=== PATIENT | male | born 1975 | race Hispanic/Latino ===

== ENCOUNTER 2019-08-23 11:50 | Inpatient (IN) | payer BC ==
[~2019-08-23] VITALS: Ht 175.3 cm; Wt 78.6 kg
[2019-08-23] MEDS ORDERED: SODIUM CHLORIDE 0.9% 1000ML 1,000 ML IV STA ×2 (11:54→15:38)
[2019-08-23] MEDS ORDERED: DIATRIZOATE MEGL/DIATRIZOA SOD 30 ML BTL PO ONE (12:16)
[2019-08-23] MEDS ORDERED: KETOROLAC TROMETHAMINE 30 MG/ML VIAL IV ONE (12:30)
[2019-08-23] MEDS ORDERED: ONDANSETRON HCL INJ 2MG/ML 2ML 2 MG/ML VIAL IV ONE (13:00)
[2019-08-23 13:01] LABS: BASOPHILS # (AUTO) 0.1 (0.0-0.1); BASOPHILS % 0.2 % (0.0-1.0); HEMATOCRIT 42.8 % (38.2-49.6); HEMOGLOBIN 14.9 g/dL (14.0-18.0); LYMPHOCYTES # (AUTO) 1.5 (1.0-3.2); LYMPHOCYTES % 5.6 % (18.0-39.1); MEAN CORPUSCULAR HEMOGLOBIN 30.7 pg (28-32); MEAN CORPUSCULAR HGB CONC 34.8 g/dL (31-35); MEAN CORPUSCULAR VOLUME 88.2 fL (81-99); MONOCYTES # (AUTO) 1.6 (0.2-0.8); MONOCYTES % 5.9 % (4.4-11.3); NEUTROPHILS % 87.4 % (38.7-80.0); PLATELET COUNT 294 x10e3/uL (140-360); RED BLOOD COUNT 4.85 x10e6/uL (4.3-5.7); RED CELL DISTRIBUTION WIDTH 12.6 % (11.7-14.4)
--- NOTE | 2019-08-23 13:06 | NUR ---
REC'D PT IN RM 3 WITH C/O ABD PAIN/FEVER. PLACED ON THE MONITOR AND HAS CT CONTRAST; WHICH HE IS TOLERATING WELL.
[2019-08-23] MEDS ORDERED: PIPER-TAZ 3.375 GM 50 ML IV ONE (14:00)
--- NOTE | 2019-08-23 14:43 | NUR ---
temp. 99.2-abx hung and pt is tolerating well.
[2019-08-23 14:46] LABS: BLOOD UREA NITROGEN 10 mg/dL (7-26); BUN/CREATININE RATIO 10 (6-25); EST GLOMERULAR FILTRATION RATE > 60 ML/MIN (60-)
[2019-08-23 14:47] LABS: ALANINE AMINOTRANSFERASE 118 IU/L (0-55); ALBUMIN 3.6 g/dL (3.5-5.0); ALBUMIN/GLOBULIN RATIO 0.7 (0.8-2.0); ALKALINE PHOSPHATASE 211 IU/L (40-150); ANION GAP 15.6 mmol/L (8-16); CALCIUM 10.6 mg/dL (8.4-10.2); CARBON DIOXIDE 24 mmol/L (22-29); CHLORIDE 98 mmol/L (98-107); GLUCOSE 128 mg/dL (74-118); POTASSIUM 3.6 mmol/L (3.5-5.1); SODIUM 134 mmol/L (136-145)
[2019-08-23 15:02] LABS: CLARITY,URINE CLOUDY (CLEAR); COLOR,URINE ORANGE (YELLOW); LEUKOCYTE ESTERASE ,URINE NEGATIVE (NEGATIVE); NITRITE,URINE NEGATIVE (NEGATIVE)
[2019-08-23 15:03] LABS: BILIRUBIN,URINE MODERATE (NEGATIVE); KETONES,URINE 1+ (NEGATIVE); PROTEIN,URINE DIPSTICK 1+ (NEGATIVE); URINE UROBILINOGEN 8 mg/dL (0.2 - 1)
[2019-08-23 15:16] LABS: BACTERIA,URINE MODERATE /HPF; EPITHELIAL CELLS,URINE FEW /LPF; RBC,URINE 0-5 /HPF (0-5)
[2019-08-23 15:17] LABS: MUCUS,URINE RARE (RARE)
--- NOTE | 2019-08-23 15:28 | Diagnostic Imaging Report ---
EXAM: CT Abdomen and Pelvis WITH intravenous contrast INDICATION: Abdominal pain COMPARISON: None. TECHNIQUE: Abdomen and pelvis were scanned utilizing a multidetector helical scanner from the lung base to the pubic symphysis after administration of IV contrast. Coronal and sagittal reformations were obtained. Routine protocol was performed. Scan was performed during portal venous phase. IV CONTRAST: 100mL of Isovue 370 ORAL CONTRAST: Gastrografin RADIATION DOSE: Total DLP: 419.97 mGy*cm Dose modulation, iterative reconstruction, and/or weight based adjustment of the mA/kV was utilized to reduce the radiation dose to as low as reasonably achievable. FINDINGS: LOWER THORAX: Normal. HEPATOBILIARY: Diffuse hepatic steatosis. No focal liver lesion. No biliary ductal dilation. Unremarkable gallbladder. SPLEEN: No splenomegaly. PANCREAS: No focal masses or ductal dilatation. ADRENALS: No adrenal nodules. KIDNEYS/URETERS: No hydronephrosis, stones, or solid mass lesions. PELVIC ORGANS/BLADDER: Unremarkable. PERITONEUM / RETROPERITONEUM: No free air or fluid. LYMPH NODES: No lymphadenopathy. VESSELS: Unremarkable. GI TRACT: Sigmoid diverticulosis with a 7 cm segment of severely thickened sigmoid colon with pericolonic fat stranding and extensive extraluminal air. No focal drainable fluid collection. BONES AND SOFT TISSUES: Unremarkable. IMPRESSION: Acute perforated sigmoid diverticulitis with extensive pericolonic fat stranding and extraluminal air. No focal drainable diverticular abscess. Diffuse hepatic steatosis. Signed by: Sari Ribeiro MD on 08/23/2019 3:25 PM
[2019-08-23] MEDS ORDERED: SODIUM CHLORIDE 0.9% 1000ML 1,000 ML IV SCH (15:45)
[2019-08-23] MEDS: METRONIDAZOLE 500MG/NS 100ML 100 ML IV SCH ×2 (16:00→21:44)
[2019-08-23] MEDS ORDERED: MORPHINE SULFATE 2 MG/ML SYR 1ML IV PRN (16:00)
--- OUTSIDE RECORDS SUMMARY | 2019-08-23 16:17 | XMS REPORT ---
Author Author [facility] Address Unknown Phone Unavailable Care Team Providers Care Repair Mechanic Name Role Phone Elif STEVENSON Unavailable Unavailable Problems This patient has no known problems. Allergies, Adverse Reactions, Alerts This patient has no known allergies or adverse reactions. Medications This patient has no known medications. Results Test Description Test Time Test Comments Text Results Atomic Results Result Comments CT ABDOMEN/PELVIS W 2019-08-23 15:21:00 [place] [address] Patient Name: MEENAKSHI FIERRO MR #: [id number] : 1975 Age/Sex: 44/M Req #: [id number] Adm Physician: Ordered by: HARI TEJEDA [employer] Report #: [id number] Location: ER Room/Bed: Procedure: [id number] CT/CT ABDOMEN/PELVIS W Exam Date: Exam Time: REPORT STATUS: Signed EXAM: CT Abdomen and Pelvis WITH intravenous contrast INDICATIO N: Abdominal pain COMPARISON: None. TECHNIQUE: Abdomen and pelvis were scanned utilizing a multidetector helical scanner from the lung base to the pubic symphysis after administration of IV contrast. Coronal and sagittal reformations were obtained. Routine protocol was performed. Scan was performed during portal venous phase. IV CONTRAST: 100mL of Isovue 370 ORAL CONTRAST: Gastrografin RADIATION DOSE: Total DLP: 419.97 mGy*cm Dose modulation, iterative reconstruction, and/or weight based adjustment of the mA/kV was utilized to reduce the radiation dose to as low as reasonably achievable. FINDINGS: LOWER THORAX: Normal. HEPATOBILIARY: Diffuse hepatic steatosis. No focal liver lesion. No biliary ductal dilation. Unremarkable gallbladder. SPLEEN: No splenomegaly. PANCREAS: No focal masses or ductal dilatation. ADRENALS: No adrenal nodules. KIDNEYS/URETERS: No hydronephrosis, stones, or solid mass lesions. PELVIC ORGANS/BLADDER: Unremarkable. PERITONEUM / RETROPERITONEUM: No free air or fluid. LYMPH NODES: No lymphadenopathy. VESSELS: Unremarkable. GI TRACT: Sigmoid diverticulosis with a 7 cm segment of severely thickened sigmoid colon with pericolonic fat stranding and extensive extraluminal air. No focal drainable fluid collection. BONES AND SOFT TISSUES: Unremarkable. IMPRESSION: Acute perforated sigmoid diverticulitis with extensive pericolonic fat stranding and extraluminal air. No focal drainable diverticular abscess. Diffuse hepatic steatosis. Signed by: Vandana Ramirez MD on 08/23/2019 3:25 PM Dictated By: VANDANA RAMIREZ MD 1525 Transcribed By: TORO on 08/23/19 1525 COPY TO: HARI TEJEDA NP TONSILS 2018-05-08 14:26:00 RUN DATE: 05/08/18 [place] [facility] PAGE 1 RUN TIME: 1426 Specimen Inquiry RUN USER: INTERFACE PATIENT: MEENAKSHI FIERRO LOC: [facility] U #: [id number] AGE/SX: 43/M ROOM: RE05/05/18REG DR: Avi Johnston MD : 75 BED: DIS: STATUS: [facility] TLOC: SPEC #: [id number] RECD: 05/05/18 STATUS: [facility] #: [id number] EDUARDO: 05/05/18- SUBM DR: Avi Johnston MD ENTERED: 05/05/18 SP TYPE: TONSILS OTHR DR: ORDERED: GROSS PROCEDURES: GROSS (05/08/18) TISSUES: 1. TONSIL, NOS - LEFT 2. TONSIL, NOS - RIGHT CLINICAL HISTORY COLLECTION DATE: 05/05/2018 FINAL DIAGNOSIS Left tonsil, excision: TONSIL WITH REACTIVE FOLLICULAR HYPERPLASIA AND AREA OF MILD CENTRAL CYSTIC DILATATION NEGATIVE FOR MALIGNANCY Right tonsil, excision: TONSIL WITH REACTIVE FOLLICULAR HYPERPLASIA NEGATIVE FOR MALIGNANCY RRB/adryan D [phone] MACROSCOPIC The first specimen is received in formalin, labeled with the patient's name, and identified as "left tonsil",. It consists of a tonsil measuring 2.8 X 1.7 X 1.7 cm. Green ink is placed on the base. Multiple transverse sections demonstrate what appears to be a cyst within the tonsil. The cyst measures 1.5 cm in diameter. No other lesions are seen. Samples of the tonsil including the cystic area are submitted for microscopic evaluation in cassette (1). The second specimen is received in formalin, labeled with the patient's name, and identified as "right tonsil". It consists of a tonsil which measures 2.6 X 2.0 X 1.4 cm. The base is inked in blue. The specimen is multiply transected. No focal lesions are seen. Samples of the specimen are submitted for microscopic evaluation in cassette (2). CONTINUED ON NEXT PAGE RUN DATE: 05/08/18 [facility] PAGE 2 RUN TIME: 6 Specimen Inquiry RUN USER: INTERFACE SPEC #: [id number] PATIENT: MEENAKSHI FIERRO #[id number] (Continued) MACROSCOPIC (Continued) GROSS PERFORMED AT [facility] [address] [place] [address] (p)[phone] MICROSCOPIC MICROSCOPIC PERFORMED AT [facility] All of the stains, including any controls performed, stain appropriately. [facility] [address] [place] [address], [place] [address] (p)[phone] PERFORMING SITE Diagnosis performed at: [facility], SARAH BETH [address] [place] [address] Signed SIGNATURE ON FILE Kenneth Brito 05/08/18 1426 END OF REPORT
--- NOTE | 2019-08-23 16:28 | NUR ---
PT UPDATED RE POC/ORDRS/ADMIT VIA LANGUAGE LINE
--- NOTE | 2019-08-23 16:39 | NUR ---
DR. CAMACHO SAW THE PT.
--- NOTE | 2019-08-23 16:50 | NUR ---
2ND LACTIC DRAWN AND SENT OFF.
[2019-08-23] MEDS ORDERED: PIPER-TAZ 3.375 GM 50 ML IV SCH (18:00)
[2019-08-23] MEDS: SODIUM CHLORIDE 0.9% 1000ML 1,000 ML IV SCH (18:06)
[2019-08-23] MEDS ORDERED: IOPAMIDOL 370 MG/ML 200 ML INFUS..BTL INJ ONE (18:24)
[2019-08-23] MEDS ORDERED: SODIUM CHLORIDE 0.9% 50ML 50 ML ONE (18:24)
--- NOTE | 2019-08-23 19:00 | NUR ---
Received patient from day nurse, patient is alert and oriented x4. patient is on 4l nc. safety and fall precautions mantained as per hospital protocol: bed in lowest postion and locked, needed items beside bed and call duncan placed close to patient, patient instructed to use it to call nurses for any assistance needed patient verbalized understanding.
[2019-08-23 20:00] VITALS: BP_SYST 125; BP_SYST 126; BP_DIAS 76; BP_DIAS 78
[2019-08-23] MEDS ORDERED: SODIUM CHLORIDE 0.9% 250ML 250 ML ONE (20:00)
[2019-08-23 20:33] VITALS: BP 125/76
[2019-08-23] MEDS: ONDANSETRON HCL INJ 2MG/ML 2ML 2 MG/ML VIAL IV PRN (20:44)
[2019-08-23] MEDS: PIPER-TAZ 3.375 GM 50 ML IV SCH (20:44)
[2019-08-23] MEDS: MORPHINE SULFATE INJ 4 MG/ML INJ 1ML IV PRN (20:44)
--- NOTE | 2019-08-23 23:15 | Consultation ---
DATE OF CONSULTATION: 08/23/2019 HISTORY OF PRESENT ILLNESS: The patient is a 44-year-old male presents with complaints of lower abdominal pain, which he has had for two days. He had some associated diarrhea, some nausea, no vomiting. He said he had similar pain about a year ago at [facility]. He says he did not tell him what his condition was. He was evaluated CT scan of the abdomen and pelvis, which revealed sigmoid diverticulitis with contained perforation in the pericolonic area. There was no free fluid seen and the area was appeared to be mostly retroperitoneal. PAST MEDICAL HISTORY: Otherwise, unremarkable, was only previous surgery tonsillectomy. He has no chronic medical problems. MEDICATIONS: There were no current medications. ALLERGIES: NO KNOWN ALLERGIES. FAMILY HISTORY: Noncontributory. SOCIAL HISTORY: The patient does not smoke cigarettes or drink alcohol. He is . REVIEW OF SYSTEMS: As stated above. He had fever in the emergency room. Says his pain is somewhat less now. PHYSICAL EXAMINATION: GENERAL: The patient is awake and alert. VITAL SIGNS: At this time reveal heart rate around 100. He is afebrile. It was 101.7 on arrival. Blood pressure is normal. HEENT: Pupils equal, round, reactive to light. Sclerae not icteric. NECK: No masses. LUNGS: Equal breath sounds are clear bilaterally. CARDIAC: Regular rate and rhythm with no murmur. ABDOMEN: Tender in lower abdomen with questionable signs of peritonitis in the lower abdomen, otherwise is soft with no mass and no distention. EXTREMITIES: No edema. Pulses were palpable. NEUROLOGIC: Intact. LABORATORY DATA: White blood count was 27.5 on admission, hemoglobin and hematocrit are normal. There is a left shift differential. Chemistry revealed slightly elevated lactic acid level. BUN and creatinine were normal. Elevated liver function tests with elevated bilirubin, AST and ALT now and phosphatase. ASSESSMENT: A 44-year-old male with acute sigmoid diverticulitis with contained perforation. At this point, I recommend keeping the patient n.p.o. on IV fluids, IV antibiotics. This very likely resolve without requiring surgery, but if his symptoms do not improve or they worsen, then he would require surgery, which would be sigmoid colon resection, this was explained to the patient. Thank you for asking me to see Mr. Stevenson. Rafat W MD ELEAZAR White/ARIA /[id number]
[2019-08-24] VITALS (9 sets, daily range): BP systolic 105–126; BP diastolic 64–78
[2019-08-24] MEDS: SODIUM CHLORIDE 0.9% 1000ML 1,000 ML IV SCH ×3 (03:13→17:24)
[2019-08-24] MEDS: PIPER-TAZ 3.375 GM 50 ML IV SCH ×2 (03:43→09:16)
[2019-08-24] MEDS ORDERED: ACETAMINOPHEN 650 MG SUPP PR PRN (04:30)
[2019-08-24 05:20] LABS: BASOPHILS % 0.2 % (0.0-1.0); EOSINOPHILS % 0.1 % (0.0-6.0); HEMATOCRIT 35.5 % (38.2-49.6); HEMOGLOBIN 11.8 g/dL (14.0-18.0); LYMPHOCYTES # (AUTO) 1.7 (1.0-3.2); LYMPHOCYTES % 8.9 % (18.0-39.1); MEAN CORPUSCULAR HEMOGLOBIN 29.9 pg (28-32); MEAN CORPUSCULAR HGB CONC 33.2 g/dL (31-35); MEAN CORPUSCULAR VOLUME 90.1 fL (81-99); MONOCYTES # (AUTO) 1.6 (0.2-0.8); MONOCYTES % 8.5 % (4.4-11.3); NEUTROPHILS # (AUTO) 15.5 (2.1-6.9); NEUTROPHILS % 81.7 % (38.7-80.0); PLATELET COUNT 262 x10e3/uL (140-360); RED BLOOD COUNT 3.94 x10e6/uL (4.3-5.7); RED CELL DISTRIBUTION WIDTH 12.8 % (11.7-14.4)
[2019-08-24 05:50] LABS: ALANINE AMINOTRANSFERASE 76 IU/L (0-55); ALBUMIN 2.6 g/dL (3.5-5.0); ALBUMIN/GLOBULIN RATIO 0.6 (0.8-2.0); ALKALINE PHOSPHATASE 157 IU/L (40-150); ANION GAP 14.4 mmol/L (8-16); BLOOD UREA NITROGEN 11 mg/dL (7-26); BUN/CREATININE RATIO 13 (6-25); CARBON DIOXIDE 18 mmol/L (22-29); CHLORIDE 107 mmol/L (98-107); CREATININE, SERUM 0.83 mg/dL (0.72-1.25); EST GLOMERULAR FILTRATION RATE > 60 ML/MIN (60-); GLUCOSE 91 mg/dL (74-118); POTASSIUM 3.4 mmol/L (3.5-5.1); SODIUM 136 mmol/L (136-145)
[2019-08-24] MEDS: METRONIDAZOLE 500MG/NS 100ML 100 ML IV SCH ×4 (05:55→22:00)
--- NOTE | 2019-08-24 07:21 | NUR ---
patient endorsed to next shift for continuity of care.
[2019-08-24] MEDS ORDERED: POTASSIUM CHLORIDE 20MEQ/100ML 200 ML IV ONE (10:30)
[2019-08-24] MEDS: CEFEPIME 1GM/NS 0.9% 50 ML 50 ML IV SCH ×2 (14:00→22:56)
--- NOTE | 2019-08-24 17:26 | History and Physical ---
CHIEF COMPLAINT: Abdominal pain. HISTORY OF PRESENT ILLNESS: This is a 44-year-old male with no past medical history reports with acute onset of abdominal pain that began on Tuesday of this last week. The patient reports that he was at home, suddenly noticed acute abdominal pain in the periumbilical area that radiated to his left lower quadrant. He does not have a history of diverticulitis in the past. He does not follow up with the PCP very frequently. The patient came in to [facility] for further evaluation and management. Imaging study CT abdomen and pelvis showed evidence of a perforated sigmoid diverticulitis acutely. There was no evidence of any abscess seen. The patient denies any nausea or vomiting. Reports having abdominal pain. General Surgery was consulted. REVIEW OF SYSTEMS: Pertinent positives: Abdominal pain. Pertinent negatives: Denies any chest pain, palpitation, nausea, vomiting, diarrhea, dysuria, hematuria, frequency, urgency, lightheadedness, dizziness, cough, congestion, fever, or any other complaints. The rest of 14-point review of systems have been reviewed with the patient and are negative. ALLERGIES: NO KNOWN DRUG ALLERGIES. MEDICATIONS: None. PAST MEDICAL HISTORY: None. PAST SURGICAL HISTORY: None. FAMILY HISTORY: Hypertension and diabetes. SOCIAL HISTORY: No drugs, no alcohol, does not smoke. PHYSICAL EXAMINATION: VITAL SIGNS: Temperature is 98, pulse 90, respiratory 16, blood pressure 105/68, pulse ox 99% on room air. GENERAL: Not in acute distress. Alert and oriented x3. Cooperative on examination. HEENT: Head normocephalic, atraumatic. Eyes; pupils are equal, round, and reactive to light bilaterally. Extraocular muscles intact bilaterally. NECK: Supple. Good range of motion. THROAT: No evidence of erythema or exudates in the posterior pharynx. Has poor dentition. PULMONARY: Clear to auscultation bilaterally. No wheezing, rales, or rhonchi. No crackles appreciated. CARDIOVASCULAR: Positive S1, S2. No murmurs, rubs, or gallops. ABDOMEN: Soft, nondistended, nontender to palpation. Bowel sounds present. Tender to palpation in the left lower quadrant, very mild, but no rebound and no guarding appreciated. MUSCULOSKELETAL: Strength is 5/5 throughout. No evidence of any muscle deficits on examination. No weakness appreciated. NEUROLOGIC: Cranial nerves II through XII grossly intact. No evidence of any neurological deficits on exam. SKIN: Intact. Warm to touch. Good cap refill. PSYCHIATRIC: Normal affect and mood. EXTREMITIES: No edema. Good range of motion throughout. LABORATORY FINDINGS: White count on admission was 27, now 18.9, hemoglobin is 11.8, hematocrit 35, and platelets of 262. Chemistry; sodium 136, potassium 3.4, chloride 107, bicarb 18, anion gap of , BUN 11, creatinine 0.83, glucose 91, lactic acid on admission 2.2, 1.1, now 0.9, calcium is 9, total bilirubin was 1.9, AST is 30, ALT 76, alkaline phosphatase 157, total protein 6.7, albumin is 2.6. Urinalysis concerning for underlying UTI. MICROBIOLOGY: Urine cultures, no growth to date. Blood cultures are pending. IMAGING STUDIES: CT abdomen and pelvis shows acute perforated sigmoid diverticulitis with extensive pericolonic fat stranding and extraluminal air. No diverticular abscess. Diffuse hepatic steatosis. IMPRESSION: 1. Acute perforated sigmoid diverticulitis. 2. Abdominal pain with nausea. 3. Dehydration. 4. Probable urinary tract infection. 5. Elevated LFTs, improving. PLAN: At this time, General surgery consult recommends conservative treatment. He is on broad-spectrum IV antibiotic therapy. ID consulted. IV fluids, n.p.o., and pain control. Follow recommendations by General Surgery. He is currently now on a diet, which we will continue to follow and this will be determined based on General Surgery. At this time, he was very mildly tender on examination, but no rebound or guarding on exam. Follow ID and General Surgery recommendations. He will be on SCDs for DVT prophylaxis. Otherwise, we will monitor very closely and continue with same plan of care. MD ZACHARY Whitaker/ARIA /[id number]
--- NOTE | 2019-08-24 17:45 | Consultation ---
DATE OF CONSULTATION: REASON FOR CONSULTATION: Abdominal pain. HISTORY OF PRESENT ILLNESS: The patient, who is a very pleasant 44-year-old male denies any past medical history, comes in with 5 days history of left lower quadrant pain, was getting progressively worse, started 5 to 6 days ago. The next day, was getting progressively worse. There is some nausea. No vomiting. No fever. No chills. The patient went to an outside facility. He was given oral antibiotic, but he continued the next day not feeling better, so he was sent here. The patient is being admitted. A CAT scan was done. He has already been seen by Surgery. The patient apparently had diverticulitis with contained perforation in the pericolonic area. There was no flow to aspirate. The patient was admitted. I was asked to see him. LABORATORY DATA: His blood culture is still pending. His white count on admission was 27.4, came down to 18.9, hemoglobin 14, hematocrit 42 on admission. His sodium 134, potassium 3.6, creatinine 1.0 with a glucose of 128. Liver enzymes showed elevation of AST 37, ALT 118 with alkaline phosphatase 211. Lactic acid on admission was 2.2. MEDICATIONS: The patient is currently on metronidazole, Zosyn, and Zofran. PAST MEDICAL HISTORY: He denies. PAST SURGICAL HISTORY: He had tonsillectomy. ALLERGIES: NKA. SOCIAL HISTORY: He denies drug abuse or alcohol abuse. He smokes occasionally. FAMILY HISTORY: Noncontributory. REVIEW OF SYSTEMS: HEENT: There is no headache, visual changes, or hearing changes. GI: There is no nausea, no vomiting. At the present time, the pain is better, but still some. : Otherwise unremarkable. SKIN: There is no other rash. Laboratory data reviewed. Chart reviewed. His CAT scan also reviewed. Also, the notes from Surgery reviewed. The CAT scan showed acute perforated sigmoid diverticulitis with extensive pericolonic fat stranding with air, but there is no drainable abscess. PHYSICAL EXAMINATION: GENERAL: He is currently alert and oriented. Does not seem to be in acute distress. VITAL SIGNS: Stable, currently afebrile. HEENT: He is not icteric. NECK: Supple. CHEST: Clear. HEART: S1 and S2. No S3, S4, or murmur. ABDOMEN: Soft. There is some diffuse discomfort. IMPRESSION: Diverticulitis with contained perforation. I would recommend to put him on cefepime and Flagyl. Discontinue Zosyn. Continue the above. Observe clinically. Surgery is following. May need surgery. There is no abscess at the present time. If there is no progression in few days, he may need surgery, but if it is localized to an abscess, wound drain. May have to repeat the CAT scan on Tuesday or Tuesday depending on clinical progress. MD DRAGAN Miller/ARIA /[id number]
[2019-08-25] VITALS (10 sets, daily range): BP systolic 111–126; BP diastolic 58–74
[2019-08-25 05:26] LABS: HEMATOCRIT 36.9 % (38.2-49.6); HEMOGLOBIN 12.2 g/dL (14.0-18.0); MEAN CORPUSCULAR HEMOGLOBIN 29.8 pg (28-32); MEAN CORPUSCULAR HGB CONC 33.1 g/dL (31-35); MEAN CORPUSCULAR VOLUME 90.2 fL (81-99); PLATELET COUNT 288 x10e3/uL (140-360); RED BLOOD COUNT 4.09 x10e6/uL (4.3-5.7); RED CELL DISTRIBUTION WIDTH 12.9 % (11.7-14.4)
[2019-08-25 05:43] LABS: ANION GAP 16.1 mmol/L (8-16); BLOOD UREA NITROGEN 9 mg/dL (7-26); BUN/CREATININE RATIO 12 (6-25); CALCIUM 9.2 mg/dL (8.4-10.2); CARBON DIOXIDE 19 mmol/L (22-29); CHLORIDE 105 mmol/L (98-107); CREATININE, SERUM 0.76 mg/dL (0.72-1.25); EST GLOMERULAR FILTRATION RATE > 60 ML/MIN (60-); GLUCOSE 74 mg/dL (74-118); POTASSIUM 4.1 mmol/L (3.5-5.1); SODIUM 136 mmol/L (136-145)
[2019-08-25] MEDS: METRONIDAZOLE 500MG/NS 100ML 100 ML IV SCH ×4 (05:45→21:45)
[2019-08-25] MEDS: CEFEPIME 1GM/NS 0.9% 50 ML 50 ML IV SCH ×3 (06:00→21:12)
[2019-08-25] MEDS: SODIUM CHLORIDE 0.9% 1000ML 1,000 ML IV SCH ×4 (06:24→23:51)
[2019-08-25 06:58] LABS: ALANINE AMINOTRANSFERASE 59 IU/L (0-55); ALBUMIN 2.7 g/dL (3.5-5.0); ALBUMIN/GLOBULIN RATIO 0.6 (0.8-2.0); ALKALINE PHOSPHATASE 169 IU/L (40-150)
--- NOTE | 2019-08-25 07:21 | NUR ---
Patient condition throughout the night was stable, patient endorsed to next shift for continuity of care.
[2019-08-25] MEDS: ONDANSETRON HCL INJ 2MG/ML 2ML 2 MG/ML VIAL IV PRN (11:31)
[2019-08-25] MEDS: MORPHINE SULFATE INJ 4 MG/ML INJ 1ML IV PRN (11:32)
--- NOTE | 2019-08-25 18:20 | NUR ---
pt arrived on unit; received report from CHIOMA Marsh; pt awake, alert, arrived via wheelchair. no signs of distress.
--- NOTE | 2019-08-25 18:52 | Progress Note ---
DATE: SUBJECTIVE: Mr. Stevenson is feeling better. There are no new complaints. Abdominal pain is better. His white count is coming down that is down to 17.7. When he first came, it was 27.47, hemoglobin is 12.2. Also, his sodium 136, potassium 4.1, creatinine 0.75. His liver enzymes remain elevated, his AST is 59, ALT of 169 with albumin of 2.7 and globulin of 4.7. His serology, hepatitis A, B, and C is negative. His blood cultures, there is no growth and urine cultures, there is no growth. His CAT scan as mentioned above acute perforated sigmoid diverticulitis with extensive pericolonic . REVIEW OF SYSTEMS: Otherwise unremarkable at present time. His review of systems at present time, HEENT: Negative. PULMONARY: Negative CARDIAC: Negative. MEDICATIONS: He remains on cefepime and Flagyl. PHYSICAL EXAMINATION: GENERAL: There is no fever since admission. HEENT: Not icteric. NECK: Supple. CHEST: Clear. HEART: S1, S2. No murmur. ABDOMEN: Soft. Bowel sounds present. No tenderness. EXTREMITIES: No edema. SKIN: No rash. IMPRESSION: 1. Diverticulitis with contained perforation. Continue with the current choice of IV antibiotic. Recheck CBC. I am still concerned his leukocytosis. He may need to be on intravenous antibiotic until total resolution. Surgery is following. 2. Elevated liver enzyme, etiology unclear. We will follow up as an outpatient. 3. We will get a PICC line on Tuesday. Continue to follow CBC and Surgery is following. MD DRAGAN Miller/MADDYL /[id number]
--- NOTE | 2019-08-25 19:04 | NUR ---
walking rounds completed, change of shift report given to oncoming nightshift RN. pt in stable condition.
[2019-08-25] MEDS ORDERED: PERIPHERAL TPN FORMULA 1 BAG IV SCH (20:00)
--- NOTE | 2019-08-25 20:10 | NUR ---
START NEW IV TO RIGHT WRIST 20G. PPN INITIATE AT 90 ML/HR
[2019-08-26] VITALS (7 sets, daily range): BP systolic 128–134; BP diastolic 70–75
[2019-08-26] MEDS: METRONIDAZOLE 500MG/NS 100ML 100 ML IV SCH ×3 (04:23→21:45)
[2019-08-26] MEDS: CEFEPIME 1GM/NS 0.9% 50 ML 50 ML IV SCH ×3 (05:40→21:13)
[2019-08-26 06:39] LABS: BASOPHILS # (AUTO) 0.1 (0.0-0.1); BASOPHILS % 0.8 % (0.0-1.0); EOSINOPHILS # (AUTO) 0.1 (0.0-0.4); EOSINOPHILS % 0.8 % (0.0-6.0); HEMATOCRIT 39.9 % (38.2-49.6); HEMOGLOBIN 13.3 g/dL (14.0-18.0); LYMPHOCYTES # (AUTO) 2.2 (1.0-3.2); LYMPHOCYTES % 13.8 % (18.0-39.1); MEAN CORPUSCULAR HEMOGLOBIN 29.8 pg (28-32); MEAN CORPUSCULAR HGB CONC 33.3 g/dL (31-35); MEAN CORPUSCULAR VOLUME 89.5 fL (81-99); MONOCYTES # (AUTO) 1.8 (0.2-0.8); NEUTROPHILS # (AUTO) 11.1 (2.1-6.9); NEUTROPHILS % 69.8 % (38.7-80.0); PLATELET COUNT 346 x10e3/uL (140-360); RED BLOOD COUNT 4.46 x10e6/uL (4.3-5.7); RED CELL DISTRIBUTION WIDTH 12.5 % (11.7-14.4)
[2019-08-26 07:06] LABS: ANION GAP 16.4 mmol/L (8-16); BLOOD UREA NITROGEN 10 mg/dL (7-26); BUN/CREATININE RATIO 14 (6-25); CALCIUM 9.4 mg/dL (8.4-10.2); CARBON DIOXIDE 20 mmol/L (22-29); CHLORIDE 103 mmol/L (98-107); CREATININE, SERUM 0.69 mg/dL (0.72-1.25); EST GLOMERULAR FILTRATION RATE > 60 ML/MIN (60-); GLUCOSE 106 mg/dL (74-118); POTASSIUM 3.4 mmol/L (3.5-5.1); SODIUM 136 mmol/L (136-145)
--- NOTE | 2019-08-26 07:12 | NUR ---
received shift change report from table games shift manager RN, walking rounds completed, pt awake, alert, oriented X3, no signs of distress.
[2019-08-26] MEDS ORDERED: POTASSIUM CHLORIDE 20MEQ/100ML 200 ML IV ONE (14:15)
[2019-08-26] MEDS: MORPHINE SULFATE INJ 4 MG/ML INJ 1ML IV PRN (18:25)
[2019-08-26] MEDS: ONDANSETRON HCL INJ 2MG/ML 2ML 2 MG/ML VIAL IV PRN (18:26)
[2019-08-26] MEDS ORDERED: PERIPHERAL TPN FORMULA 1 BAG IV SCH (20:00)
[2019-08-27] VITALS (9 sets, daily range): BP systolic 108–121; BP diastolic 59–74
[2019-08-27] MEDS ORDERED: SODIUM CHLORIDE 0.9% 250ML 250 ML ONE ×2 (04:11→20:29)
[2019-08-27] MEDS: METRONIDAZOLE 500MG/NS 100ML 100 ML IV SCH ×4 (04:16→22:34)
[2019-08-27 05:26] LABS: BASOPHILS # (AUTO) 0.2 (0.0-0.1); BASOPHILS % 1.1 % (0.0-1.0); EOSINOPHILS # (AUTO) 0.2 (0.0-0.4); EOSINOPHILS % 1.3 % (0.0-6.0); HEMATOCRIT 42.5 % (38.2-49.6); HEMOGLOBIN 14.2 g/dL (14.0-18.0); LYMPHOCYTES # (AUTO) 2.4 (1.0-3.2); LYMPHOCYTES % 15.2 % (18.0-39.1); MEAN CORPUSCULAR HEMOGLOBIN 29.6 pg (28-32); MEAN CORPUSCULAR HGB CONC 33.4 g/dL (31-35); MEAN CORPUSCULAR VOLUME 88.7 fL (81-99); MONOCYTES # (AUTO) 1.8 (0.2-0.8); MONOCYTES % 11.6 % (4.4-11.3); NEUTROPHILS # (AUTO) 10.4 (2.1-6.9); NEUTROPHILS % 65.3 % (38.7-80.0); PLATELET COUNT 392 x10e3/uL (140-360); RED BLOOD COUNT 4.79 x10e6/uL (4.3-5.7); RED CELL DISTRIBUTION WIDTH 12.5 % (11.7-14.4)
[2019-08-27 05:56] LABS: ANION GAP 13.9 mmol/L (8-16); BLOOD UREA NITROGEN 13 mg/dL (7-26); BUN/CREATININE RATIO 18 (6-25); CALCIUM 9.8 mg/dL (8.4-10.2); CARBON DIOXIDE 22 mmol/L (22-29); CHLORIDE 104 mmol/L (98-107); CREATININE, SERUM 0.73 mg/dL (0.72-1.25); EST GLOMERULAR FILTRATION RATE > 60 ML/MIN (60-); GLUCOSE 123 mg/dL (74-118); POTASSIUM 3.9 mmol/L (3.5-5.1); SODIUM 136 mmol/L (136-145)
[2019-08-27] MEDS: CEFEPIME 1GM/NS 0.9% 50 ML 50 ML IV SCH ×3 (06:05→21:00)
[2019-08-27 07:10] LABS: BAND NEUTROPHILS % (MANUAL) 1 %; EOSINOPHILS % (MANUAL) 2 % (0-7); LYMPHOCYTES % (MANUAL) 16 % (19-48); MONOCYTES % (MANUAL) 10 % (3.4-9.0); NEUTROPHILS % (MANUAL) 71 % (40-74)
[2019-08-27 07:12] LABS: PLATELET ESTIMATE SLIGHTLY INCREASED; PLATELET MORPHOLOGY COMMENT FEW LARGE; POIKILOCYTOSIS SLIGHT; RBC MORPHOLOGY COMMENT ABNORMAL; SCHISTOCYTES RARE; TEAR DROP CELLS FEW
--- NOTE | 2019-08-27 11:54 | Progress Note ---
DATE: SUBJECTIVE: Mr. Stevenson says his abdominal pain is better. He has some fullness in the anal area. Overall, he is feeling better. He started tolerating clear liquids today. REVIEW OF SYSTEMS: Otherwise unremarkable. PHYSICAL EXAMINATION: GENERAL: He is currently alert, oriented, does not seem to be in acute distress. VITAL STABLE: Stable. Afebrile. HEENT: Normocephalic, not appear icteric. NECK: Supple. CHEST: Clear bilateral. HEART: S1, S2. No S3, S4, or murmur. ABDOMEN: Soft. Bowel sounds present. No tenderness. EXTREMITIES: No edema. SKIN: There is no rash. IMPRESSION: Diverticulitis with early abscess and early perforation. Discussed with Surgery. There is no plan for surgery. He is currently on cefepime and Flagyl. I would recommend to recheck CBC. If the patient tolerate oral intake, probably discharge home tomorrow with antibiotic. We will also get a PICC line on him. The possibility of surgery is there still. Discussed with the patient. We will follow up clinically. MD DRAGAN Miller/ARIA /[id number]
--- NOTE | 2019-08-27 13:39 | NUR ---
Per Dr. Zhou this is last bag of TPN.
--- NOTE | 2019-08-27 14:54 | Diagnostic Imaging Report ---
EXAMINATION: CHEST XRAY LINE PLACEMENT INDICATION: Line placement COMPARISON: None FINDINGS: LINES/TUBES:Right PICC line terminates at the superior cavoatrial junction. EKG leads overlie the chest. LUNGS:The lungs are moderately inflated. No focal consolidation or pulmonary edema. PLEURA:No pleural effusion or pneumothorax. MEDIASTINUM:The cardiomediastinal silhouette appears normal in size and shape. BONES/SOFT TISSUES:No acute osseous injury. ABDOMEN:No free air under the diaphragm. IMPRESSION: Right PICC line terminates at the superior cavoatrial junction. No focal pneumonia or pulmonary edema. Signed by: Sari Ribeiro MD on 08/27/2019 2:51 PM
[2019-08-28] VITALS (7 sets, daily range): BP systolic 100–121; BP diastolic 60–71
[2019-08-28] MEDS: METRONIDAZOLE 500MG/NS 100ML 100 ML IV SCH ×6 (04:00→21:12)
[2019-08-28] MEDS: CEFEPIME 1GM/NS 0.9% 50 ML 50 ML IV SCH ×3 (05:18→21:12)
[2019-08-28 05:31] LABS: BASOPHILS # (AUTO) 0.1 (0.0-0.1); BASOPHILS % 0.8 % (0.0-1.0); EOSINOPHILS # (AUTO) 0.2 (0.0-0.4); EOSINOPHILS % 1.4 % (0.0-6.0); HEMATOCRIT 44.2 % (38.2-49.6); HEMOGLOBIN 14.8 g/dL (14.0-18.0); MEAN CORPUSCULAR HEMOGLOBIN 29.8 pg (28-32); MEAN CORPUSCULAR HGB CONC 33.5 g/dL (31-35); MEAN CORPUSCULAR VOLUME 88.9 fL (81-99); MONOCYTES # (AUTO) 1.5 (0.2-0.8); MONOCYTES % 8.7 % (4.4-11.3); NEUTROPHILS # (AUTO) 10.8 (2.1-6.9); NEUTROPHILS % 64.8 % (38.7-80.0); PLATELET COUNT 405 x10e3/uL (140-360); RED BLOOD COUNT 4.97 x10e6/uL (4.3-5.7); RED CELL DISTRIBUTION WIDTH 12.4 % (11.7-14.4)
--- NOTE | 2019-08-28 12:45 | NUR ---
Per Dr. Zhou patient will not be discharging home today due to low grade fever last night and increase in WBC. CBC to be repeated tomorrow.
--- NOTE | 2019-08-28 14:00 | NUR ---
Discussed with the patient and that he will not be discharged today but labs will be repeated and possible discharge tomorrow.
--- NOTE | 2019-08-28 14:54 | NUR ---
Pt had appointment for 10am tomorrow at Dr. Sargent's office for IV abx. CM was informed by CHIOMA Paul that pt is not discharging today, due to increased WBC and low grade temp last night. Plan to recheck labs in AM. JERED called and spoke with Mariah at Dr. Sargent's office and informed her that pt is not discharging today. She states pt can come in by 2pm tomorrow, if he gets discharged early. Appointment information was printed and given to pt. CM will update Mariah if pt does not discharge tomorrow. [address] [place] [address]
[2019-08-28] MEDS: MORPHINE SULFATE INJ 4 MG/ML INJ 1ML IV PRN ×2 (22:21→22:25)
[2019-08-28] MEDS: ONDANSETRON HCL INJ 2MG/ML 2ML 2 MG/ML VIAL IV PRN (22:21)
[2019-08-29] VITALS (8 sets, daily range): BP systolic 101–122; BP diastolic 57–72
[2019-08-29] MEDS: METRONIDAZOLE 500MG/NS 100ML 100 ML IV SCH ×4 (03:43→22:00)
[2019-08-29 04:20] LABS: BASOPHILS # (AUTO) 0.1 (0.0-0.1); BASOPHILS % 0.8 % (0.0-1.0); EOSINOPHILS # (AUTO) 0.3 (0.0-0.4); EOSINOPHILS % 1.5 % (0.0-6.0); HEMATOCRIT 45.2 % (38.2-49.6); LYMPHOCYTES # (AUTO) 3.1 (1.0-3.2); LYMPHOCYTES % 19.4 % (18.0-39.1); MEAN CORPUSCULAR HEMOGLOBIN 29.5 pg (28-32); MEAN CORPUSCULAR HGB CONC 33.2 g/dL (31-35); MEAN CORPUSCULAR VOLUME 88.8 fL (81-99); MONOCYTES # (AUTO) 1.5 (0.2-0.8); MONOCYTES % 9.4 % (4.4-11.3); NEUTROPHILS # (AUTO) 10.1 (2.1-6.9); NEUTROPHILS % 62.9 % (38.7-80.0); PLATELET COUNT 425 x10e3/uL (140-360); RED BLOOD COUNT 5.09 x10e6/uL (4.3-5.7); RED CELL DISTRIBUTION WIDTH 12.4 % (11.7-14.4)
[2019-08-29 04:39] LABS: BLOOD UREA NITROGEN 14 mg/dL (7-26); BUN/CREATININE RATIO 18 (6-25); CALCIUM 10.4 mg/dL (8.4-10.2); CARBON DIOXIDE 25 mmol/L (22-29); CHLORIDE 100 mmol/L (98-107); EST GLOMERULAR FILTRATION RATE > 60 ML/MIN (60-); GLUCOSE 102 mg/dL (74-118); SODIUM 133 mmol/L (136-145)
[2019-08-29] MEDS: CEFEPIME 1GM/NS 0.9% 50 ML 50 ML IV SCH ×3 (05:12→21:00)
[2019-08-29] MEDS ORDERED: DIATRIZOATE MEGL/DIATRIZOA SOD 30 ML BTL PO ONE (06:35)
[2019-08-29] MEDS ORDERED: SODIUM CHLORIDE 0.9% 250ML 250 ML ONE (07:27)
[2019-08-29] MEDS ORDERED: IOPAMIDOL 370 MG/ML 200 ML INFUS..BTL INJ ONE (08:22)
[2019-08-29] MEDS ORDERED: SODIUM CHLORIDE 0.9% 50ML 50 ML ONE (08:22)
[2019-08-29 08:43] LABS: BAND NEUTROPHILS % (MANUAL) 3 %; LYMPHOCYTES % (MANUAL) 18 % (19-48); MONOCYTES % (MANUAL) 7 % (3.4-9.0); NEUTROPHILS % (MANUAL) 71 % (40-74)
[2019-08-29 08:48] LABS: POIKILOCYTOSIS SLIGHT; RBC MORPHOLOGY COMMENT ABNORMAL; TEAR DROP CELLS FEW
[2019-08-29 08:49] LABS: PLATELET ESTIMATE SLIGHTLY INCREASED; PLATELET MORPHOLOGY COMMENT NORMAL
--- NOTE | 2019-08-29 08:57 | Diagnostic Imaging Report ---
TECHNIQUE: CT of the abdomen and pelvis WITH intravenous contrast and WITH oral contrast. Dose modulation, iterative reconstruction, and/or weight-based adjustment of the mA/kV was utilized to reduce the radiation dose to as low as reasonably achievable. INDICATION: ^sigmoid diverticulitis ^[id number] ^[id number]. COMPARISON: CT from 08/23/2019. FINDINGS: LOWER THORAX: Bibasilar subsegmental atelectasis. The partially visualized central venous catheter has its tip in the right atrium. HEPATOBILIARY: No focal hepatic lesions. Gallbladder is unremarkable. No biliary ductal dilatation. SPLEEN: No splenomegaly. PANCREAS: No focal masses or ductal dilatation. ADRENALS: No adrenal nodules. KIDNEYS/URETERS: No hydronephrosis, stones, or masses. PELVIC ORGANS/BLADDER: The prostate is mildly enlarged. PERITONEUM/RETROPERITONEUM: Scattered, trace pneumoperitoneum. LYMPH NODES: No lymphadenopathy. VESSELS: There is a small volume of portal venous gas. GI TRACT: The thickening of the sigmoid colon is similar to the prior examination. However, the amount of loculated gas has increased. In addition, a collection of gas and feculent material outside of the colon is new and measures 4.1 x 5.6 x 2.8 cm. The appendix is normal. BONES AND SOFT TISSUES: Transitional lumbar vertebra with a left L5-S1 fusion. IMPRESSION: 1. The amount of gas adjacent to the sigmoid colon has increased with a collection of feculent material and gas which measures 4.1 x 5.6 x 2.8 cm and is new. There is also trace pneumoperitoneum adjacent to the liver. Although no other diverticula are seen in the sigmoid colon, this is most likely due to a perforated diverticulitis given the configuration. Consider a colonoscopy after treatment of the acute abnormality. 2. A small volume of portal venous gas is new and is most likely due to the gas in the mesentery as opposed to necrotic bowel. Signed by: Juancarlos Bennett JR, MD on 08/29/2019 8:53 AM
--- NOTE | 2019-08-29 09:53 | NUR ---
Paged to notify of CT results
--- NOTE | 2019-08-29 10:50 | NUR ---
aware of CT results. See orders
--- NOTE | 2019-08-29 10:55 | NUR ---
Per nursing report, Dr. White ordered to put pt on clear liquid diet. May possibly need surgery on Tuesday. CM updated Dr. Sargent's nurse Ayanna on pt not discharging today.
[2019-08-29] MEDS ORDERED: CITRATE OF MAGNESIA 300ML BOTTLE PO ONE (13:30)
--- NOTE | 2019-08-29 13:36 | Progress Note ---
DATE: SUBJECTIVE: Mr. Stevenson is doing well. There are no new complaints. His abdominal pain is slightly better. However, his white count remains elevated. Repeat CAT scan was done, showed amount of gas adjacent to sigmoid has increased with a collection of material of gas 4.1 to 5.6. PHYSICAL EXAMINATION: GENERAL: He is currently alert, comfortable, does not seem to be in acute distress. VITAL SIGNS: Stable, currently afebrile. HEENT: Not icteric. NECK: Supple. CHEST: Few crackles bilaterally. COR: S1 and S2. No S3, S4, or murmur. ABDOMEN: Soft. Bowel sounds present. IMPRESSION: Intraabdominal abscess, sigmoid colon diverticulitis. The patient is currently on cefepime and metronidazole. We will discuss with surgery. We will follow. MD DRAGAN Miller/ARIA /[id number]
[2019-08-29] MEDS: MORPHINE SULFATE INJ 4 MG/ML INJ 1ML IV PRN ×2 (15:00→20:40)
--- NOTE | 2019-08-29 18:22 | NUR ---
Nutrition Screen Note RD Recommendation for Physician: Advance to GI soft diet when medically appropriate Plan of Care: RD following, monitoring for tolerance and adequacy Nutrition reason for involvement: Length of stay Primary Diagnose(s): diverticulitis of colon with perforation, sepsis PMH: none Ht: 69 in Wt:175 lb BMI: 25.8 kg/m2 IBW:[address] Assessment: (08/29/19) Chart reviewed. Labs and meds reviewed. Pt is a 44 year old male admitted with diverticulitis of colon with perforation and sepsis. Pt was on a clear liquid diet at time of visit. Per documentation, pt consumed 75% of clear liquid meal tray at lunch. Pt was previously on a regular diet and consumed 85-100% of meals yesterday. Pt reported he had lost wt and weighed 175 lbs. However, pt currently has a wt of 175 lbs in chart. No N/V/D/C reported and no chewing/swallowing issues Will continue to monitor. Current Diet: Clear Liquids Malnutrition Evaluation (08/29/19) The patient does not meet criteria for a specified degree of malnutrition at this time. Will re-evaluate at follow-up as appropriate. Diet Education Needs Assessment: Diet education not indicated. Nutrition Care Level: low Signed: Janine Merino, RD, LD
--- NOTE | 2019-08-29 18:36 | NUR ---
Resting in bed, side rails upx2, call light within reach. Resting in bed with eyes closed. Arousable to verbal stimuli. Respirations even and unlabored.Report to be given to oncoming nurse of patient's status.
--- NOTE | 2019-08-29 19:50 | NUR ---
Received report from night nurse. Pt alert and orient to name, lying in bed HOB 30 degrees. c/o mild abd pain. Call light within reach. Bed low and locked.
[2019-08-30] VITALS (8 sets, daily range): BP systolic 104–132; BP diastolic 57–80
[2019-08-30] MEDS: MORPHINE SULFATE INJ 4 MG/ML INJ 1ML IV PRN ×3 (01:30→22:14)
[2019-08-30] MEDS: METRONIDAZOLE 500MG/NS 100ML 100 ML IV SCH (04:00)
[2019-08-30 05:53] LABS: BASOPHILS # (AUTO) 0.1 (0.0-0.1); BASOPHILS % 0.5 % (0.0-1.0); EOSINOPHILS # (AUTO) 0.2 (0.0-0.4); EOSINOPHILS % 0.7 % (0.0-6.0); HEMATOCRIT 44.9 % (38.2-49.6); HEMOGLOBIN 14.8 g/dL (14.0-18.0); LYMPHOCYTES # (AUTO) 2.9 (1.0-3.2); LYMPHOCYTES % 14.3 % (18.0-39.1); MEAN CORPUSCULAR HEMOGLOBIN 29.6 pg (28-32); MEAN CORPUSCULAR VOLUME 89.8 fL (81-99); MONOCYTES # (AUTO) 1.8 (0.2-0.8); MONOCYTES % 8.6 % (4.4-11.3); NEUTROPHILS # (AUTO) 15.1 (2.1-6.9); NEUTROPHILS % 73.3 % (38.7-80.0); PLATELET COUNT 318 x10e3/uL (140-360); RED CELL DISTRIBUTION WIDTH 12.3 % (11.7-14.4)
[2019-08-30] MEDS: CEFEPIME 1GM/NS 0.9% 50 ML 50 ML IV SCH ×3 (06:00→22:14)
[2019-08-30 06:09] LABS: ANION GAP 14.1 mmol/L (8-16); BLOOD UREA NITROGEN 11 mg/dL (7-26); BUN/CREATININE RATIO 14 (6-25); CALCIUM 9.5 mg/dL (8.4-10.2); CARBON DIOXIDE 22 mmol/L (22-29); CHLORIDE 100 mmol/L (98-107); CREATININE, SERUM 0.77 mg/dL (0.72-1.25); EST GLOMERULAR FILTRATION RATE > 60 ML/MIN (60-); GLUCOSE 100 mg/dL (74-118); POTASSIUM 4.1 mmol/L (3.5-5.1); SODIUM 132 mmol/L (136-145)
--- NOTE | 2019-08-30 07:00 | NUR ---
BEDSIDE SHIFT REPORT RECEIVED FROM NIGHT RN. PT DENIES NEEDS AT THIS TIME.
[2019-08-30 07:54] LABS: LYMPHOCYTES % (MANUAL) 16 % (19-48); MONOCYTES % (MANUAL) 10 % (3.4-9.0); NEUTROPHILS % (MANUAL) 74 % (40-74); PLATELET ESTIMATE ADEQUATE; PLATELET MORPHOLOGY COMMENT NORMAL; RBC MORPHOLOGY COMMENT NORMAL
[2019-08-30] MEDS ORDERED: CITRATE OF MAGNESIA 300ML BOTTLE PO ONE (10:00)
[2019-08-30] MEDS: METRONIDAZOLE 500 MG TAB PO SCH ×3 (12:19→23:10)
[2019-08-30] MEDS: NEOMYCIN SULFATE 500 MG TAB PO SCH ×3 (12:19→23:10)
[2019-08-30] MEDS: DEXTROSE 5%/0.9% SOD CHL 1,000 ML IV SCH ×2 (13:49→22:14)
[2019-08-30] MEDS: ONDANSETRON HCL INJ 2MG/ML 2ML 2 MG/ML VIAL IV PRN (22:14)
[2019-08-31] VITALS (8 sets, daily range): BP systolic 111–119; BP diastolic 58–76
[2019-08-31] MEDS: CEFEPIME 1GM/NS 0.9% 50 ML 50 ML IV SCH ×3 (05:31→22:33)
[2019-08-31 06:05] LABS: BASOPHILS # (AUTO) 0.1 (0.0-0.1); BASOPHILS % 0.4 % (0.0-1.0); EOSINOPHILS # (AUTO) 0.2 (0.0-0.4); EOSINOPHILS % 1.1 % (0.0-6.0); HEMATOCRIT 43.1 % (38.2-49.6); HEMOGLOBIN 14.4 g/dL (14.0-18.0); LYMPHOCYTES # (AUTO) 2.6 (1.0-3.2); LYMPHOCYTES % 17.6 % (18.0-39.1); MEAN CORPUSCULAR HEMOGLOBIN 30.2 pg (28-32); MEAN CORPUSCULAR HGB CONC 33.4 g/dL (31-35); MEAN CORPUSCULAR VOLUME 90.4 fL (81-99); MONOCYTES # (AUTO) 1.2 (0.2-0.8); NEUTROPHILS # (AUTO) 10.5 (2.1-6.9); NEUTROPHILS % 70.7 % (38.7-80.0); PLATELET COUNT 337 x10e3/uL (140-360); RED BLOOD COUNT 4.77 x10e6/uL (4.3-5.7); RED CELL DISTRIBUTION WIDTH 12.3 % (11.7-14.4)
[2019-08-31 06:38] LABS: BLOOD UREA NITROGEN 9 mg/dL (7-26); BUN/CREATININE RATIO 12 (6-25); CALCIUM 9.1 mg/dL (8.4-10.2); CARBON DIOXIDE 22 mmol/L (22-29); CHLORIDE 103 mmol/L (98-107); CREATININE, SERUM 0.75 mg/dL (0.72-1.25); EST GLOMERULAR FILTRATION RATE > 60 ML/MIN (60-); GLUCOSE 102 mg/dL (74-118); SODIUM 136 mmol/L (136-145)
--- NOTE | 2019-08-31 07:07 | NUR ---
pt alert resp even and unlabored at this time no distress noted, pt able to make needs known, pt had family member at bedside. call light in reach.
[2019-08-31 07:54] LABS: EOSINOPHILS % (MANUAL) 2 % (0-7); LYMPHOCYTES % (MANUAL) 20 % (19-48); MONOCYTES % (MANUAL) 3 % (3.4-9.0); NEUTROPHILS % (MANUAL) 75 % (40-74); PLATELET ESTIMATE ADEQUATE; PLATELET MORPHOLOGY COMMENT NORMAL; RBC MORPHOLOGY COMMENT NORMAL; TOXIC GRANULATION SLIGHT
[2019-08-31] MEDS: DEXTROSE 5%/0.9% SOD CHL 1,000 ML IV SCH (08:48)
--- NOTE | 2019-08-31 08:48 | NUR ---
PT OFF UNIT FOR PROCEDURE.
[2019-08-31] MEDS ORDERED: SUGAMMADEX SODIUM 200 MG/2 ML VIAL IV ONE (09:05)
[2019-08-31] MEDS ORDERED: NALOXONE HCL INJ 0.4 MG/ML AMP IV PRN (10:30)
[2019-08-31] MEDS ORDERED: ACETAMINOPHEN 1000 MG/100 ML IV PRN (10:30)
[2019-08-31] MEDS ORDERED: DIPHENHYDRAMINE HCL INJ 50 MG/ML VIAL IM PRN (10:30)
[2019-08-31] MEDS ORDERED: KETOROLAC TROMETHAMINE 30 MG/ML VIAL IV PRN (10:30)
[2019-08-31] MEDS ORDERED: HYDROMORPHONE 0.2MG/ML-SOD CHL 30ML PCA SYRINGE IV ONE (10:45)
[2019-08-31] MEDS ORDERED: HYDROMORPHONE 1MG/1ML INJ ONE (10:54)
--- NOTE | 2019-08-31 11:25 | NUR ---
pt return to unit, resp even and unlabored at his time, pt has SENIOR COPYWRITER pump verified by myself and CHIOMA Mai, Arslan to gravity, family at bedside. call light in reach
--- NOTE | 2019-08-31 11:26 | Operative Report ---
DATE OF PROCEDURE: 08/31/2019 SURGEON: Rafat White MD PREOPERATIVE DIAGNOSIS: Sigmoid colon diverticulitis. POSTOPERATIVE DIAGNOSIS: Sigmoid colon diverticulitis. PROCEDURE: Sigmoid colon resection. YARN WINDER: None. ANESTHESIA: General endotracheal. INDICATIONS AND FINDINGS: The patient is a 44-year-old male admitted to the hospital with complaints of severe lower abdominal pain. Workup revealed sigmoid diverticulitis with contained perforation. He was initially treated nonoperatively, but symptoms did not resolve and his inflammation progressed. Surgery based on the inflamed segment of sigmoid colon in the mid sigmoid colon the area involved was approximately 15 cm long. The colon proximal and distal to this was not inflamed. Small bowel appeared normal. There was contained perforation, but no free generalized peritonitis. TECHNIQUE: After adequate general endotracheal anesthesia with the patient in supine position, legs in low stirrups. The abdomen was prepped and draped in a sterile fashion with ChloraPrep solution. Perineum prepped and draped in sterile fashion with Betadine solution. A lower midline incision was made in the peritoneal cavity entered. There was inflammatory process involving the colon. The colon adherent to the abdominal wall in the lower abdomen as well as over the area of the bladder. The colon was freed from these areas was adherent. There was a contained perforation in the colon. The proximal colon was mobilized by dividing the peritoneal attachments. Care was taken not to injure the ureter. The distal colon was not inflamed. The colon proximal to area of inflammation was divided with PATSY stapler. Mesentery was divided with LigaSure device until beyond the area of inflammation and then the distal sigmoid colon was divided with PATSY stapler and specimen removed. Proximal colon was mobilized further by dividing peritoneal attachments. Care was taken not to injure the ureter. The two ends easily came together without any tension. Anastomosis was made between the proximal and distal colon with the PATSY stapler and TL60 stapler. Hemostasis was seen to be adequate. The wound was irrigated with saline, inspected for hemostasis which was seen to be adequate. The wound was then closed. The midline fascia was closed with running suture of #1 PDS. Subcutaneous tissue was irrigated with saline. Skin was closed with anastasia. Sterile dressing was applied. The patient tolerated the procedure well. Estimated blood loss was 75 mL. There were no complications. All counts were correct and the patient was taken to the recovery room in satisfactory condition. Rafat W MD ELEAZAR White/ARIA /[id number]
[2019-08-31] MEDS: DEXTROSE 5%/LACTATED RINGERS 1,000 ML IV SCH ×2 (13:17→16:54)
[2019-08-31] MEDS ORDERED: ROCURONIUM BROMIDE 10 MG/ML 5ML VIAL ONE (14:37)
[2019-08-31] MEDS ORDERED: DEXAMETHASONE SOD PHOS INJ 4 MG/ML VIAL ONE (14:37)
[2019-08-31] MEDS ORDERED: PROPOFOL IV EMULSION 10 MG/ML 20 ML VIAL ONE (14:37)
[2019-08-31] MEDS ORDERED: ACETAMINOPHEN 1000 MG/100 ML IV ONE (14:37)
[2019-08-31] MEDS ORDERED: LIDOCAINE HCL 2% LOCAL INJ 5 ML SDV VIAL INJ ONE (14:37)
[2019-08-31] MEDS ORDERED: SEVOFLURANE INHAL SOLN 250 ML PEN BTL ONE (14:37)
[2019-08-31] MEDS ORDERED: LIDOCAINE HCL 2% JELLY 5 ML TUBE ONE (14:37)
[2019-08-31] MEDS ORDERED: ONDANSETRON HCL INJ 2MG/ML 2ML 2 MG/ML VIAL ONE (14:37)
[2019-08-31] MEDS ORDERED: FENTANYL CITRATE/PF 100MCG/2 ML INJ ONE (16:15)
[2019-08-31] MEDS ORDERED: KETAMINE HCL INJ 50 MG/ML 10 ML VIAL ONE (16:15)
--- NOTE | 2019-08-31 16:36 | Progress Note ---
DATE: 08/31/2019 Medicine Progress Note SUBJECTIVE: The patient underwent status post colon resection today by partial colon resection performed today by General Surgery. The patient was seen postoperatively. He is currently doing well with no issues. He underwent a sigmoid colon resection. OBJECTIVE: VITAL SIGNS: Temperature is 98.9, pulse 92, respiratory rate is 20, blood pressure is 119/71, pulse ox 98% on room air. GENERAL: Not in acute distress. Alert and oriented x3. Cooperative on examination. HEENT: Head; normocephalic, atraumatic. Eyes; pupils are equal, round, and reactive to light bilaterally. Extraocular movements intact bilaterally. Throat; no evidence of erythema or exudates in the posterior pharynx. Has poor dentition. NECK: Supple. Good range of motion. PULMONARY: Clear to auscultation bilaterally. No wheezing, no rales, no rhonchi, no crackles appreciated. CARDIOVASCULAR: Positive S1 and S2. No murmurs, rubs, or gallops appreciated. ABDOMEN: Soft, nondistended and nontender to palpation. Bowel sounds are present. MUSCULOSKELETAL: Strength is 5/5 throughout. No evidence of any muscle deficits on examination. No weakness appreciated. NEUROLOGIC: Cranial nerves 2 through 12 grossly intact. No evidence of any neurological deficits on exam. SKIN: Intact. Warm to touch. Good cap refill. PSYCHIATRIC: Normal affect and mood. EXTREMITIES: No edema. Good range of motion throughout. LABORATORY FINDINGS: Show white count 14.8, hemoglobin 14, hematocrit is 43, platelets of 337. Chemistry; sodium 136, potassium 4, chloride 103, bicarb 22, anion gap is 15, BUN 9, creatinine 0.75. Urinalysis. Wound cultures. Peritoneal fluid was sent for cultures. Blood cultures were negative. Urine cultures were negative. We are going to be pending on the perineal fluid cultures. IMPRESSION: 1. Status post sigmoid colon resection due to perforated diverticula. 2. Sepsis with leukocytosis secondary to perforated diverticula. 3. Abdominal pain secondary to status post sigmoid colon resection. 4. Dehydration. PLAN: At this time, he is status post sigmoid colon resection performed by General Surgery today, 08/31/2019. Continue with n.p.o., IV fluids, pain control on Dilaudid ORTHOPEDICS NURSE. Get morning labs. Continue with broad-spectrum IV antibiotics. ID and General surgery are following closely. Peritoneal fluid has been sent for culture. We will await for final cultures and sensitivities. We will encourage ambulation as well. Continue same plan of care and monitor closely. MD ZACHARY Whitaker/ARIA /[id number]
--- NOTE | 2019-08-31 19:44 | NUR ---
Report given to oncoming nurse. pt stable at this time.
[2019-08-31] MEDS: HYDROMORPHONE 0.2MG/ML-SOD CHL 30ML PCA SYRINGE IV PRN (20:29)
--- NOTE | 2019-08-31 21:30 | NUR ---
PATIENT IS IN STABLE CONDITION, FAMILY MEMBER AT BEDSIDE. PATIENT IS CURRENTLY ON LOT WORKER PUMP AND VOICES PAIN AT A LEVEL OF 4-5. BED IS IN LOW POSITION, SIDE RAILS ARE UP, CALL LIGHT WITHIN EASY REACH, WILL CONTINUE TO MONITOR.
[2019-09-01] VITALS (8 sets, daily range): BP systolic 116–131; BP diastolic 69–77
[2019-09-01] MEDS: HYDROMORPHONE 0.2MG/ML-SOD CHL 30ML PCA SYRINGE IV PRN ×3 (01:20→14:42)
[2019-09-01] MEDS: DEXTROSE 5%/LACTATED RINGERS 1,000 ML IV SCH ×3 (01:50→18:24)
[2019-09-01 05:36] LABS: BASOPHILS # (AUTO) 0.1 (0.0-0.1); BASOPHILS % 0.2 % (0.0-1.0); EOSINOPHILS % 0.1 % (0.0-6.0); HEMATOCRIT 45.2 % (38.2-49.6); HEMOGLOBIN 14.9 g/dL (14.0-18.0); LYMPHOCYTES # (AUTO) 2.4 (1.0-3.2); LYMPHOCYTES % 9.9 % (18.0-39.1); MEAN CORPUSCULAR HEMOGLOBIN 30.2 pg (28-32); MEAN CORPUSCULAR VOLUME 91.5 fL (81-99); MONOCYTES # (AUTO) 1.5 (0.2-0.8); MONOCYTES % 6.1 % (4.4-11.3); NEUTROPHILS % 82.7 % (38.7-80.0); PLATELET COUNT 197 x10e3/uL (140-360); RED BLOOD COUNT 4.94 x10e6/uL (4.3-5.7); RED CELL DISTRIBUTION WIDTH 12.4 % (11.7-14.4)
[2019-09-01 05:55] LABS: ANION GAP 14.2 mmol/L (8-16); BLOOD UREA NITROGEN 8 mg/dL (7-26); BUN/CREATININE RATIO 11 (6-25); CALCIUM 9.1 mg/dL (8.4-10.2); CARBON DIOXIDE 25 mmol/L (22-29); CHLORIDE 101 mmol/L (98-107); EST GLOMERULAR FILTRATION RATE > 60 ML/MIN (60-); GLUCOSE 132 mg/dL (74-118); POTASSIUM 4.2 mmol/L (3.5-5.1); SODIUM 136 mmol/L (136-145)
[2019-09-01] MEDS: CEFEPIME 1GM/NS 0.9% 50 ML 50 ML IV SCH ×2 (06:49→16:10)
--- NOTE | 2019-09-01 06:58 | NUR ---
Indwelling Mcdaniels catheter in placed, intact with yellow-colored urine to drainage bag.
--- NOTE | 2019-09-01 06:58 | NUR ---
Received patient lying in bed with eyes open. PATIENT ACCESS MANAGER pump in placed. Respiration even and unlabored without SOB. at bedside. Midline abdominal incision with dressing dry clean and intact. Call light in reach.
[2019-09-01] MEDS: METRONIDAZOLE 500MG/NS 100ML 100 ML IV SCH ×2 (13:15→18:15)
--- NOTE | 2019-09-01 17:11 | Progress Note ---
DATE: Medicine Progress Note SUBJECTIVE: The patient is doing well today with no complaints. Abdominal pain is still present, but improving. He is on a clear liquid diet. LABORATORY FINDINGS: White count was found to be elevated today, much higher at 24.1, hemoglobin 14.9, hematocrit 45, and platelets of 197. Chemistries were reviewed and stable. Wound culture showed gram-negative rods x2 species and enterococcus species. Blood cultures show no growth to date. Urine cultures were negative. PHYSICAL EXAMINATION: VITAL SIGNS: Temperature is 97.4, pulse 92, respiratory rate is 18, blood pressure 126/77, and pulse ox 99% on room air. GENERAL: No acute distress. Alert and oriented x3. Cooperative on examination. HEENT: Head; normocephalic, atraumatic. Eyes; pupils are equal, round, and reactive to light bilaterally. Extraocular movements intact bilaterally. Throat; no evidence of erythema or exudates in the posterior pharynx. Has poor dentition. NECK: Supple. Good range of motion. PULMONARY: Clear to auscultation bilaterally. No wheezing, rales, or rhonchi. No crackles appreciated. CARDIOVASCULAR: Positive S1 and S2. No murmurs, rubs, or gallops appreciated. ABDOMEN: Soft, nondistended, and nontender to palpation. Bowel sounds are present. MUSCULOSKELETAL: Strength is 5/5 throughout. No evidence of any muscle deficits on examination. NEUROLOGIC: Cranial nerves II through XII grossly intact. No evidence of any neurological deficits on exam. SKIN: Intact. Warm to touch. Good cap refill. PSYCHIATRIC: Normal affect and mood. EXTREMITIES: No edema. Good range of motion throughout. IMPRESSION: 1. Status post sigmoid colon resection with perforated diverticula, now with elevated white count. 2. Sepsis with leukocytosis secondary to perforated diverticula, now with increased white count. 3. Abdominal pain secondary to status post small colon resection. 4. Dehydration. PLAN: At this time, the patient's white count did go up. I am not sure if that is an error or not. The patient is afebrile, doing well with no complaints. We will get repeat labs in the morning. General Surgery already spoke with the family at bedside this morning. His white count did go up. We will monitor that very closely. His peritoneal fluid cultures were noted. ID and General Surgery are following closely. Continue same plan of care and monitor closely. MD ZACHARY Whitaker/ARIA /[id number]
[2019-09-01] MEDS: PANTOPRAZOLE 40 MG 10ML VIAL IV SCH (18:14)
--- NOTE | 2019-09-01 19:00 | NUR ---
Report given to night nurse. respiration even and unlabored without SOB. Lying in bed with eyes open, Indwelling jacobs catheter intact and in placed. Spouse at bedside. VACCINATOR pump in placed. Call light in reach
[2019-09-01 19:17] LABS: BASOPHILS % 0.2 % (0.0-1.0); EOSINOPHILS % 0.2 % (0.0-6.0); HEMOGLOBIN 13.9 g/dL (14.0-18.0); LYMPHOCYTES # (AUTO) 2.3 (1.0-3.2); LYMPHOCYTES % 9.5 % (18.0-39.1); MEAN CORPUSCULAR HEMOGLOBIN 29.6 pg (28-32); MEAN CORPUSCULAR HGB CONC 32.3 g/dL (31-35); MEAN CORPUSCULAR VOLUME 91.5 fL (81-99); MONOCYTES # (AUTO) 1.5 (0.2-0.8); MONOCYTES % 6.1 % (4.4-11.3); NEUTROPHILS # (AUTO) 19.9 (2.1-6.9); NEUTROPHILS % 83.2 % (38.7-80.0); PLATELET COUNT 357 x10e3/uL (140-360); RED CELL DISTRIBUTION WIDTH 12.5 % (11.7-14.4)
[2019-09-01] MEDS ORDERED: ALTEPLASE RECOMBINANT 2 MG/2 ML VIAL IV PRN (20:30)
--- NOTE | 2019-09-01 20:45 | NUR ---
PATIENT IS IN STABLE CONDITION, IS LAYING AT BEDSIDE. PATIENT IS STILL CURRENTLY ON PRESIDENT & CEO PUMP AND VOICES PAIN AT A LEVEL OF 5. IV FLUIDS ARE RUNNING AT ORDERED RATE, BED IS IN LOW POSITION, SIDE RAILS ARE UP, CALL LIGHT WITHIN EASY REACH, WILL CONTINUE TO MONITOR.
[2019-09-01] MEDS: MEROPENEM 1GM 100 ML IV SCH (22:05)
[2019-09-02] VITALS (8 sets, daily range): BP systolic 115–134; BP diastolic 68–81
[2019-09-02] MEDS: DEXTROSE 5%/LACTATED RINGERS 1,000 ML IV SCH ×3 (03:10→18:24)
[2019-09-02] MEDS ORDERED: ACETAMINOPHEN 325 MG TAB PO PRN (04:45)
[2019-09-02] MEDS: MEROPENEM 1GM 100 ML IV SCH ×3 (05:20→21:20)
[2019-09-02 05:45] LABS: HEMATOCRIT 35.1 % (38.2-49.6); HEMOGLOBIN 11.4 g/dL (14.0-18.0); MEAN CORPUSCULAR HGB CONC 32.5 g/dL (31-35); MEAN CORPUSCULAR VOLUME 92.4 fL (81-99); PLATELET COUNT 230 x10e3/uL (140-360); RED CELL DISTRIBUTION WIDTH 12.6 % (11.7-14.4)
--- NOTE | 2019-09-02 07:02 | NUR ---
Received patient sitting on the chair with eyes open. Respiration even and unlabored without SOB. Call light in reach.
--- NOTE | 2019-09-02 07:45 | NUR ---
TRAN REMOVED FROM PATIENT VIA ORDERS FROM DR. CAMACHO. PATIENT DISPLAYS NO SIGNS OF DISTRESS OR PAIN.
[2019-09-02] MEDS ORDERED: ALTEPLASE RECOMBINANT 2 MG/2 ML VIAL IV NR (10:30)
[2019-09-02 10:43] LABS: ANION GAP 14.4 mmol/L (8-16); BLOOD UREA NITROGEN 6 mg/dL (7-26); BUN/CREATININE RATIO 11 (6-25); CALCIUM 8.1 mg/dL (8.4-10.2); CARBON DIOXIDE 23 mmol/L (22-29); CHLORIDE 102 mmol/L (98-107); CREATININE, SERUM 0.56 mg/dL (0.72-1.25); EST GLOMERULAR FILTRATION RATE > 60 ML/MIN (60-); GLUCOSE 104 mg/dL (74-118); POTASSIUM 3.4 mmol/L (3.5-5.1); SODIUM 136 mmol/L (136-145)
[2019-09-02] MEDS: PANTOPRAZOLE 40 MG 10ML VIAL IV SCH ×2 (10:45→17:15)
--- NOTE | 2019-09-02 11:40 | NUR ---
Patient have voided twice to urinal post indwelling jacobs catheter removal at 0700 by night nurse.
[2019-09-02] MEDS: MORPHINE SULFATE INJ 4 MG/ML INJ 1ML IV PRN ×3 (12:38→23:32)
--- NOTE | 2019-09-02 12:59 | Progress Note ---
DATE: 09/02/2019 Medicine Progress Note SUBJECTIVE: The patient is doing much better today with no complaints. We are going to go ahead and discontinue the Dilaudid. Continue with IV morphine pushes. He is still on a clear liquid diet. I encouraged the patient to get up and ambulate. He refuses to walk a whole lot. PHYSICAL EXAMINATION: VITAL SIGNS: Temperature is 97.7, pulse 89, blood pressure is 129/76, pulse ox 99% on room air. GENERAL: Not in acute distress. Alert and oriented x3. Cooperative on examination. HEENT: Head; normocephalic, atraumatic. Eyes; pupils are equal, round, and reactive to light bilaterally. Extraocular movements intact bilaterally. Throat; no evidence of erythema or exudates in the posterior pharynx. Has poor dentition. NECK: Supple. Good range of motion. PULMONARY: Clear to auscultation bilaterally. No wheezing, no rales, no rhonchi, no crackles appreciated. CARDIOVASCULAR: Positive S1 and S2. No murmurs, rubs, or gallops appreciated. ABDOMEN: Soft, nondistended and nontender to palpation. Bowel sounds are present. MUSCULOSKELETAL: Strength is 5/5 throughout. No evidence of any muscle deficits on examination. No weakness appreciated. NEUROLOGIC: Cranial nerves 2 through 12 grossly intact. No evidence of any neurological deficits on exam. SKIN: Intact. Warm to touch. Good cap refill. PSYCHIATRIC: Normal affect and mood. EXTREMITIES: No edema. Good range of motion throughout. LABORATORY DATA: Lab findings show sodium 136, potassium 4.2, chloride 101, bicarb 25, anion gap is 8, and creatinine 0.78. His H and H shows hemoglobin 11.4, hematocrit 35, platelets of 230. IMPRESSION: 1. Acute diverticulitis with perforation status post sigmoid resection. 2. Nausea, vomiting and abdominal pain. 3. Dehydration. PLAN: At this time, continue with postop care. He is doing much better with no issues. I am going to get repeat labs in the morning. DC MARBLE POLISHER HAND Dilaudid. Continue with IV pushes of morphine for pain. Encourage ambulation. Continue with broad-spectrum IV antibiotic therapy. Get morning labs. Follow with General Surgery and Infectious Disease recommendations. Lovenox for DVT prophylaxis. MD ZACHARY Whitaker/MADDYL /[id number]
[2019-09-02] MEDS ORDERED: POTASSIUM CHLORIDE 20MEQ/15ML UDC NG ONE (13:15)
[2019-09-02] MEDS: ONDANSETRON HCL INJ 2MG/ML 2ML 2 MG/ML VIAL IV PRN ×2 (15:16→23:32)
--- NOTE | 2019-09-02 15:30 | NUR ---
Visit made by the Spiritual Care Department Pastoral Visitor, Thanh Harris. PV provided pastoral presence, prayer, hospitality, communion, and supportive listening. Pastoral Visitor informed pt/family of the scope of [employer] and availability. CLAY CHAMPAGNE Fur Cutting Machine Operator Spiritual Care Department O: [phone] Pager: [phone] ([phone] number calling from)
[2019-09-02] MEDS: HEPARIN SOD (PORCINE) 5,000 UNIT/ML VIAL SC SCH (21:20)
[2019-09-02] MEDS: MELATONIN 5 MG TABLET PO SCH (21:20)
--- NOTE | 2019-09-02 21:25 | NUR ---
PATIENT IS IN STABLE CONDITION, NO SIGNS OF DISTRESS NOTED. PATIENT IS RESTING IN BED AND VOICES PAIN AT A LEVEL OF 5. IV FLUIDS ARE RUNNING AT ORDERED RATE, BED IS IN LOW POSITION, SIDE RAILS ARE UP, CALL LIGHT WITHIN EASY REACH, WILL CONTINUE TO MONITOR.
[2019-09-03] VITALS (9 sets, daily range): BP systolic 114–132; BP diastolic 69–80
[2019-09-03] MEDS: DEXTROSE 5%/LACTATED RINGERS 1,000 ML IV SCH ×2 (02:24→08:35)
[2019-09-03] MEDS: MORPHINE SULFATE INJ 4 MG/ML INJ 1ML IV PRN ×4 (05:05→23:11)
[2019-09-03] MEDS: ONDANSETRON HCL INJ 2MG/ML 2ML 2 MG/ML VIAL IV PRN ×2 (05:05→08:39)
[2019-09-03] MEDS: MEROPENEM 1GM 100 ML IV SCH ×3 (05:32→22:00)
[2019-09-03 05:35] LABS: HEMATOCRIT 38.4 % (38.2-49.6); HEMOGLOBIN 12.5 g/dL (14.0-18.0); MEAN CORPUSCULAR HEMOGLOBIN 29.4 pg (28-32); MEAN CORPUSCULAR HGB CONC 32.6 g/dL (31-35); MEAN CORPUSCULAR VOLUME 90.4 fL (81-99); PLATELET COUNT 370 x10e3/uL (140-360); RED BLOOD COUNT 4.25 x10e6/uL (4.3-5.7); RED CELL DISTRIBUTION WIDTH 12.2 % (11.7-14.4)
[2019-09-03 05:53] LABS: ALANINE AMINOTRANSFERASE 16 IU/L (0-55); ALBUMIN 2.6 g/dL (3.5-5.0); ALBUMIN/GLOBULIN RATIO 0.6 (0.8-2.0); ALKALINE PHOSPHATASE 122 IU/L (40-150); AMYLASE 45 U/L (25-125); ANION GAP 14.5 mmol/L (8-16); BLOOD UREA NITROGEN 7 mg/dL (7-26); BUN/CREATININE RATIO 10 (6-25); CALCIUM 9.4 mg/dL (8.4-10.2); CARBON DIOXIDE 26 mmol/L (22-29); CHLORIDE 97 mmol/L (98-107); CREATININE, SERUM 0.67 mg/dL (0.72-1.25); EST GLOMERULAR FILTRATION RATE > 60 ML/MIN (60-); GLUCOSE 104 mg/dL (74-118); LIPASE 35 U/L (8-78); POTASSIUM 3.5 mmol/L (3.5-5.1); SODIUM 134 mmol/L (136-145)
[2019-09-03] MEDS: HEPARIN SOD (PORCINE) 5,000 UNIT/ML VIAL SC SCH ×2 (08:30→21:00)
[2019-09-03] MEDS: PANTOPRAZOLE 40 MG 10ML VIAL IV SCH ×2 (08:30→17:17)
[2019-09-03] MEDS: HYDROCODONE/APAP 5MG-325MG TAB PO PRN ×2 (14:04→19:38)
--- NOTE | 2019-09-03 19:28 | NUR ---
Patient received lying in bed. Family at bedside. AAO x 3. Patient had no complaints of pain. Respirations even and non-labored. IVF infusing at 77 cc /hr. Safety measures in place. Patient instructed to call for assistance when needed. Call light within reach.
[2019-09-03] MEDS: MELATONIN 5 MG TABLET PO SCH (21:18)
[2019-09-04] VITALS (7 sets, daily range): BP systolic 112–124; BP diastolic 61–79
[2019-09-04] MEDS: DEXTROSE 5%/LACTATED RINGERS 1,000 ML IV SCH (02:19)
[2019-09-04] MEDS: MORPHINE SULFATE INJ 4 MG/ML INJ 1ML IV PRN (04:50)
[2019-09-04 05:06] LABS: BASOPHILS % 0.3 % (0.0-1.0); EOSINOPHILS # (AUTO) 0.2 (0.0-0.4); EOSINOPHILS % 1.1 % (0.0-6.0); HEMATOCRIT 39.8 % (38.2-49.6); LYMPHOCYTES # (AUTO) 2.1 (1.0-3.2); LYMPHOCYTES % 13.9 % (18.0-39.1); MEAN CORPUSCULAR HEMOGLOBIN 29.4 pg (28-32); MEAN CORPUSCULAR HGB CONC 32.7 g/dL (31-35); MONOCYTES % 6.8 % (4.4-11.3); NEUTROPHILS # (AUTO) 11.7 (2.1-6.9); PLATELET COUNT 416 x10e3/uL (140-360); RED BLOOD COUNT 4.42 x10e6/uL (4.3-5.7)
[2019-09-04 05:25] LABS: ANION GAP 13.6 mmol/L (8-16); BLOOD UREA NITROGEN 6 mg/dL (7-26); BUN/CREATININE RATIO 8 (6-25); CALCIUM 9.4 mg/dL (8.4-10.2); CARBON DIOXIDE 27 mmol/L (22-29); CHLORIDE 98 mmol/L (98-107); CREATININE, SERUM 0.73 mg/dL (0.72-1.25); EST GLOMERULAR FILTRATION RATE > 60 ML/MIN (60-); GLUCOSE 118 mg/dL (74-118); POTASSIUM 3.6 mmol/L (3.5-5.1); SODIUM 135 mmol/L (136-145)
[2019-09-04] MEDS: MEROPENEM 1GM 100 ML IV SCH ×3 (05:30→22:00)
--- NOTE | 2019-09-04 07:00 | NUR ---
Patient resting comfortably. Walking rounds done. Shift report given to oncoming nurse.
[2019-09-04] MEDS: PANTOPRAZOLE 40 MG 10ML VIAL IV SCH ×2 (08:12→17:40)
[2019-09-04] MEDS: HEPARIN SOD (PORCINE) 5,000 UNIT/ML VIAL SC SCH ×3 (08:12→22:00)
[2019-09-04] MEDS: HYDROCODONE/APAP 5MG-325MG TAB PO PRN ×2 (08:13→13:46)
[2019-09-04] MEDS: POLYETHYLENE GLYCOL 3350 17 GM PACK PO SCH (11:00)
[2019-09-04] MEDS: DOCUSATE SODIUM 100 MG CAP PO SCH ×2 (11:00→17:00)
--- NOTE | 2019-09-04 11:30 | NUR ---
Patient stated he had a large "diarrhea" bowel movement and does not want a laxative or stool softener at this time.
--- NOTE | 2019-09-04 12:14 | Diagnostic Imaging Report ---
EXAM: CHEST SINGLE (PORTABLE) DATE: 09/04/2019 10:29 AM INDICATION: Shortness breath COMPARISON: 09/26/2019 IMPRESSION: Right-sided PICC line identified in stable position. The trachea is midline. There is mildly increased opacity present within the right perihilar region which may reflect atelectasis. A developing airspace process cannot be entirely excluded. Mild left basilar atelectasis also noted. There is no evidence for large focal consolidation, pneumothorax, or significant pleural effusion. The cardiomediastinal silhouette is stable in appearance. No acute osseous abnormality is identified. Signed by: Dr. Dash Lara MD on 09/04/2019 12:11 PM
--- NOTE | 2019-09-04 12:45 | Progress Note ---
DATE: 09/04/2019 Medicine Progress Note SUBJECTIVE: The patient is doing a whole lot better today. His diet has been advanced to regular. He still has some pain, which I will go ahead and change his IV morphine to oral [place]. He will need to go on IV antibiotics upon discharge. I explained the plan of care with the patient, the patient's and nursing staff, which they verbalized understanding. PHYSICAL EXAMINATION: VITAL SIGNS: Temperature is 97.9, pulse 85, respiration rate is 20, blood pressure 118/75, pulse ox 95% on room air. GENERAL: Not in acute distress. Alert and oriented x3. Cooperative on examination. HEENT: Head; normocephalic, atraumatic. Eyes; pupils are equal, round, and reactive to light bilaterally. Extraocular movements intact bilaterally. Throat; no evidence of erythema or exudates in the posterior pharynx. Has poor dentition. NECK: Supple. Good range of motion. PULMONARY: Clear to auscultation bilaterally. No wheezing, no rales, no rhonchi, no crackles appreciated. CARDIOVASCULAR: Positive S1 and S2. No murmurs, rubs, or gallops appreciated. ABDOMEN: Soft, nondistended and nontender to palpation. Bowel sounds are present. MUSCULOSKELETAL: Strength is 5/5 throughout. No evidence of any muscle deficits on examination. No weakness appreciated. NEUROLOGIC: Cranial nerves 2 through 12 grossly intact. No evidence of any neurological deficits on exam. SKIN: Intact. Warm to touch. Good cap refill. PSYCHIATRIC: Normal affect and mood. EXTREMITIES: No edema. Good range of motion throughout. LABORATORY FINDINGS: Showed white count of 15.1, hemoglobin 13, hematocrit 39, platelets of 416. Chemistry; sodium 135, potassium 3.6, chloride 98, bicarb 27, anion gap of 13, BUN 6, creatinine 0.76, calcium is 9.4. MICROBIOLOGY: Cultures were all noted. Blood cultures show no growth. Urine cultures were negative. IMPRESSION: 1. Acute diverticulitis with perforation status post sigmoid resection performed. 2. Nausea, vomiting and abdominal pain, resolved. 3. Dehydration, improved. PLAN: At this time, his diet has been advanced to regular diet, which he is tolerating very well now. I will go ahead and change him from IV pain medication to oral pain medication. Continue with IV antibiotics per ID. Follow General Surgery recommendations. White count has improved to 15. Get repeat labs in the morning. Encourage ambulation. He is on Lovenox for DVT prophylaxis. I will go ahead and get a chest x-ray as he reports some minimal shortness of breath. MD ZACHARY Whitaker/ARIA /[id number]
--- NOTE | 2019-09-04 14:00 | NUR ---
Patient ambulating in the hallway
--- NOTE | 2019-09-04 16:40 | NUR ---
Patient ambulating in the hallway
[2019-09-04] MEDS: HYDROCODONE/APAP 10MG-325MG TAB PO PRN (18:34)
--- NOTE | 2019-09-04 19:15 | NUR ---
Patient received sitting up in bed. AAO x 4. No acute distress noted. Midline abdominal incision clean, dry and intact. Call light within reach.
[2019-09-04] MEDS: MELATONIN 5 MG TABLET PO SCH (21:00)
[2019-09-05] VITALS (8 sets, daily range): BP systolic 105–133; BP diastolic 58–78
[2019-09-05] MEDS: HYDROCODONE/APAP 10MG-325MG TAB PO PRN ×4 (01:14→21:45)
[2019-09-05] MEDS: MEROPENEM 1GM 100 ML IV SCH ×3 (06:35→21:47)
[2019-09-05] MEDS: HEPARIN SOD (PORCINE) 5,000 UNIT/ML VIAL SC SCH ×3 (06:35→22:00)
[2019-09-05 06:42] LABS: BASOPHILS % 0.3 % (0.0-1.0); EOSINOPHILS # (AUTO) 0.1 (0.0-0.4); EOSINOPHILS % 0.7 % (0.0-6.0); HEMATOCRIT 41.6 % (38.2-49.6); HEMOGLOBIN 13.5 g/dL (14.0-18.0); LYMPHOCYTES # (AUTO) 2.3 (1.0-3.2); MEAN CORPUSCULAR HEMOGLOBIN 29.5 pg (28-32); MEAN CORPUSCULAR HGB CONC 32.5 g/dL (31-35); MONOCYTES # (AUTO) 1.1 (0.2-0.8); MONOCYTES % 6.9 % (4.4-11.3); NEUTROPHILS # (AUTO) 11.9 (2.1-6.9); NEUTROPHILS % 76.3 % (38.7-80.0); PLATELET COUNT 460 x10e3/uL (140-360); RED BLOOD COUNT 4.57 x10e6/uL (4.3-5.7); RED CELL DISTRIBUTION WIDTH 12.1 % (11.7-14.4)
[2019-09-05 07:00] LABS: ANION GAP 13.8 mmol/L (8-16); BLOOD UREA NITROGEN 9 mg/dL (7-26); BUN/CREATININE RATIO 11 (6-25); CALCIUM 9.9 mg/dL (8.4-10.2); CARBON DIOXIDE 28 mmol/L (22-29); CHLORIDE 97 mmol/L (98-107); CREATININE, SERUM 0.84 mg/dL (0.72-1.25); EST GLOMERULAR FILTRATION RATE > 60 ML/MIN (60-); GLUCOSE 104 mg/dL (74-118); POTASSIUM 3.8 mmol/L (3.5-5.1); SODIUM 135 mmol/L (136-145)
[2019-09-05] MEDS: DOCUSATE SODIUM 100 MG CAP PO SCH ×2 (08:50→16:24)
[2019-09-05] MEDS: PANTOPRAZOLE 40 MG 10ML VIAL IV SCH ×2 (08:50→16:24)
[2019-09-05] MEDS: POLYETHYLENE GLYCOL 3350 17 GM PACK PO SCH (08:50)
--- NOTE | 2019-09-05 12:55 | NUR ---
Spoke with Dr. Sargent regarding IV abx for discharge. Pt will go home on same IV abx that is already set up thru his office. CM will notify office when MD plans to discharge pt. Currently pending rounds by MDs today.
--- NOTE | 2019-09-05 15:06 | NUR ---
Spoke to Dr. Zhou regarding dc plan. States that pt will discharge tomorrow if he can tolerate diet. CM informed Dr. Sargent's nurse Ayanna plan to discharge pt tomorrow. Dr. Sargent also making rounds at this time. States pt can come to his office tomorrow at 2pm for IV abx. CM spoke to pt at bedside and verified that pt has appointment information for tomorrow.
--- NOTE | 2019-09-05 15:49 | Progress Note ---
DATE: 09/05/2019 Medicine Progress Note SUBJECTIVE: The patient reports feeling much better today with no complaints. He is tolerating diet well. His diet will be advanced today to solids. PHYSICAL EXAMINATION: VITAL SIGNS: Temperature is 97.9, pulse 81, respiratory rate is 19, blood pressure 105/58, pulse ox 96% on room air. GENERAL: Not in acute distress. Alert and oriented x3. Cooperative on examination. HEENT: Head; normocephalic, atraumatic. Eyes; pupils are equal, round, and reactive to light bilaterally. Extraocular movements intact bilaterally. Throat; no evidence of erythema or exudates in the posterior pharynx. Has poor dentition. NECK: Supple. Good range of motion. PULMONARY: Clear to auscultation bilaterally. No wheezing, no rales, no rhonchi, no crackles appreciated. CARDIOVASCULAR: Positive S1 and S2. No murmurs, rubs, or gallops appreciated. ABDOMEN: Soft, nondistended, and nontender to palpation. Bowel sounds present. MUSCULOSKELETAL: Strength is 5/5 throughout. No evidence of any muscle deficits on examination. No weakness appreciated. NEUROLOGIC: Cranial nerves II through XII grossly intact. No evidence of any neurological deficits on exam. SKIN: Intact. Warm to touch. Good cap refill. PSYCHIATRIC: Normal affect and mood. EXTREMITIES: No edema. Good range of motion throughout. LABORATORY FINDINGS: Show white count 15.5, hemoglobin 13, hematocrit is 41, platelets of 460. Chemistry; sodium 135, potassium 3.8, chloride 97, bicarb 20, anion gap of 13, BUN is 9, creatinine 0.84, glucose is 104. MICROBIOLOGY: Noted. IMAGING STUDIES: None. IMPRESSION: 1. Acute diverticulitis with perforation, status post sigmoid colon resection performed. 2. Nausea, vomiting, and abdominal pain, resolved. 3. Dehydration, improved. 4. Leukocytosis. PLAN: At this time, his diet will be advanced to regular. Hopefully, he will be able to tolerate. His pain is better controlled. We will continue with oral pain control for now. 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 Repeat labs in the morning. Encourage ambulation. Lovenox for DVT prophylaxis. Consult General Surgery and ID. Discussed case with General Surgery. If he is doing well, tolerating diet, he will go home on pain control as well as he will follow up with ID in this clinic tomorrow to get IV antibiotics. MD ZACHARY Whitaker/ARIA /[id number]
--- NOTE | 2019-09-05 18:28 | NUR ---
Nutrition Screen Note RD Recommendation for Physician: -Continue regular diet Plan of Care: RD following, monitoring for tolerance and adequacy Nutrition reason for involvement: follow up Primary Diagnose(s): diverticulitis of colon with perforation, sepsis PMH: none Ht: 69 in Wt:173 lb (08/30/19) 175 lbs (08/23/19) BMI: 25.6 kg/m2 IBW:[address] Assessment: (09/05/19) Follow up. Pt stated he has been eating >50% of his meals. Pt reports some nausea. Pt had no questions for RD at time of visit. Will continue to monitor. (08/29/19) Chart reviewed. Labs and meds reviewed. Pt is a 44 year old male admitted with diverticulitis of colon with perforation and sepsis. Pt was on a clear liquid diet at time of visit. Per documentation, pt consumed 75% of clear liquid meal tray at lunch. Pt was previously on a regular diet and consumed 85-100% of meals yesterday. Pt reported he had lost wt and weighed 175 lbs. However, pt currently has a wt of 175 lbs in chart. No N/V/D/C reported and no chewing/swallowing issues Will continue to monitor. Current Diet: Regular Malnutrition Evaluation (08/29/19) The patient does not meet criteria for a specified degree of malnutrition at this time. Will re-evaluate at follow-up as appropriate. Diet Education Needs Assessment: Diet education not indicated. Nutrition Care Level: low Signed: Janine Merino, RD, LD
--- NOTE | 2019-09-05 18:35 | Progress Note ---
DATE: SUBJECTIVE: Mr. Stevenson is feeling better today. There are no new complaints. He was able to tolerate clear liquid and full liquid now. Plan is to advance him. REVIEW OF SYSTEMS: HEENT: Negative. PULMONARY: Negative. CARDIAC: Negative. LABORATORY DATA: Again reviewed. His cultures again reviewed today. His white count is 15.7, hemoglobin 13.5. His sodium 135, potassium 3.8. PHYSICAL EXAMINATION: GENERAL: He is currently alert, oriented, does not seem to be in acute distress. VITAL SIGNS: Stable. Currently afebrile. HEENT: Not icteric. NECK: Supple. CHEST: Clear bilaterally. HEART: S1, S2. No S3, S4 or murmur. ABDOMEN: Soft. Bowel sounds present. EXTREMITIES: No edema. IMPRESSION: 1. Diverticulitis with perforation, status post partial sigmoid colon resection. 2. Concern he continued to have leukocytosis, on antibiotic, slowly getting better. PLAN: 1. The plan is to extend his meropenem at least two weeks as an outpatient. Follow up CBC as an outpatient. Chem panel as an outpatient. 2. He would need colonoscopy at one point. 3. Discussed with the patient. Answered all the questions. Discuss with Internal Medicine. We will follow with you. MD DRAGAN Miller/ARIA /[id number]
--- NOTE | 2019-09-05 19:30 | NUR ---
Patient received sitting in recliner chair. AAO x 4, No complaints of pain. No signs of respiratory distress. Call light within reach.
[2019-09-05] MEDS: MELATONIN 5 MG TABLET PO SCH (21:47)
[2019-09-06 00:24] VITALS: BP 117/69
[2019-09-06 05:04] LABS: BASOPHILS % 0.2 % (0.0-1.0); EOSINOPHILS # (AUTO) 0.1 (0.0-0.4); EOSINOPHILS % 0.7 % (0.0-6.0); HEMATOCRIT 42.3 % (38.2-49.6); HEMOGLOBIN 13.8 g/dL (14.0-18.0); LYMPHOCYTES # (AUTO) 2.2 (1.0-3.2); LYMPHOCYTES % 13.1 % (18.0-39.1); MEAN CORPUSCULAR HEMOGLOBIN 29.3 pg (28-32); MEAN CORPUSCULAR HGB CONC 32.6 g/dL (31-35); MEAN CORPUSCULAR VOLUME 89.8 fL (81-99); MONOCYTES % 5.9 % (4.4-11.3); NEUTROPHILS # (AUTO) 13.3 (2.1-6.9); NEUTROPHILS % 79.3 % (38.7-80.0); PLATELET COUNT 489 x10e3/uL (140-360); RED BLOOD COUNT 4.71 x10e6/uL (4.3-5.7); RED CELL DISTRIBUTION WIDTH 12.1 % (11.7-14.4)
[2019-09-06 05:24] LABS: ANION GAP 16.1 mmol/L (8-16); BLOOD UREA NITROGEN 9 mg/dL (7-26); BUN/CREATININE RATIO 12 (6-25); CALCIUM 10.2 mg/dL (8.4-10.2); CARBON DIOXIDE 28 mmol/L (22-29); CHLORIDE 96 mmol/L (98-107); CREATININE, SERUM 0.78 mg/dL (0.72-1.25); EST GLOMERULAR FILTRATION RATE > 60 ML/MIN (60-); GLUCOSE 110 mg/dL (74-118); POTASSIUM 4.1 mmol/L (3.5-5.1); SODIUM 136 mmol/L (136-145)
[2019-09-06] MEDS: MEROPENEM 1GM 100 ML IV SCH (05:46)
[2019-09-06] MEDS: HEPARIN SOD (PORCINE) 5,000 UNIT/ML VIAL SC SCH (05:47)
[2019-09-06 06:15] VITALS: BP 108/63
--- NOTE | 2019-09-06 06:53 | NUR ---
Received patient lying in bed with eyes open. Respiration even and unlabored without SOB. Call light in reach. Mid abdominal wound with anastasia EGG CRATER, no redness or swelling noted.
--- NOTE | 2019-09-06 07:00 | NUR ---
Patient resting comfortably. Shift report given to oncoming nurse.
[2019-09-06 08:34] VITALS: BP 125/72
[2019-09-06] MEDS: PANTOPRAZOLE 40 MG 10ML VIAL IV SCH (09:01)
[2019-09-06] MEDS: POLYETHYLENE GLYCOL 3350 17 GM PACK PO SCH (09:01)
[2019-09-06] MEDS: DOCUSATE SODIUM 100 MG CAP PO SCH (09:01)
[2019-09-06] MEDS: HYDROCODONE/APAP 10MG-325MG TAB PO PRN (09:03)
[2019-09-06 10:21] VITALS: BP 125/72
--- NOTE | 2019-09-06 12:49 | NUR ---
Patient is to D/C to home today with right upper PICC continued for IV antibiotic per Infectious Disease order.
--- NOTE | 2019-09-06 12:55 | NUR ---
Patient transported via wheelchair to private vehicle. All personal belongings are taken by patient's spouse.
--- NOTE | 2019-09-07 11:20 | Discharge Summary ---
FINAL DISCHARGE DIAGNOSES: 1. Acute diverticulitis with perforation, status post sigmoid colon resection performed by Dr. White, General Surgery. 2. Nausea, vomiting and abdominal pain, resolved. 3. Dehydration, resolved. 4. Mild leukocytosis. CONSULTANTS: We had General Surgery and Infectious Disease. PHYSICAL EXAMINATION: VITAL SIGNS: Temperature is 97.7, pulse 87, respiratory rate is 18, blood pressure 125/72, pulse ox 99% on room air. LABORATORY FINDINGS: Show white count on discharge was 16, hemoglobin 13.8, hematocrit 42.3, platelets of 489. Chemistry; sodium 136, potassium 4.1, chloride 96, bicarb 29, anion gap is 16, BUN 9, creatinine 0.78, glucose is 110, calcium is 10.2. Urinalysis was found to be negative. Hepatitis panel was negative. MICROBIOLOGY: Blood cultures were negative. Urine cultures were negative. Cultures from the status post resection in the abdomen showed evidence of E. coli, Pseudomonas and enterococcus. Pathology of the sigmoid colon shows a ruptured diverticulitis with transmural abscesses. Extensive mesenteric fat wrapping with abscess formation. Negative for malignancy. HOSPITAL COURSE: This is a 44-year-old male, who came into the emergency room with complaints of abdominal pain, nausea, vomiting and decreased oral intake. Had a CT abdomen and pelvis performed at [facility], it showed evidence of acute perforated sigmoid diverticulitis with extensive pericolonic fat stranding and extreme luminal air. There was no evidence of any diverticular abscess on admission. While here, the patient was being managed by General Surgery, Dr. White and Infectious Disease. The patient was on broad-spectrum IV antibiotic therapy. The patient initially in the hospital was improving conservatively with no surgical intervention needed per General Surgery. The patient was maintained on IV antibiotic therapy. At some point during the hospital stay, his white count improved, but then progressively got worse, prompting a repeat CT abdomen and pelvis, which revealed still worsening findings with increased collection of feculent material and gas seen and evidence of pneumoperitoneum. At that time, General Surgery determined that the patient needs surgical intervention needed. The patient underwent status post sigmoid colon resection performed by General Surgery. Postoperatively, the patient initially was complaining of pain, but progressively improved throughout the hospital course. He did maintain on broad-spectrum IV antibiotics being managed by Infectious Disease. Microbiology shows blood cultures that were negative. Urine cultures were negative, but the perineal fluid showed evidence of E. coli, Pseudomonas and enterococcus faecium. At this time, the patient was maintained on IV antibiotics and a PICC line was placed. The patient was initially started on a clear liquid diet, advance to regular diet in which he improved tremendously. He did have some minimal pain prior to being discharged and was discharged on oral pain control. His white count was slightly elevated, in which I ran this by Infectious Disease and General Surgery and they were okay as the patient has been afebrile for significant number of days while here in the hospital stay and they were comfortable discharging the patient home. The patient will continue with IV antibiotic therapy as an outpatient and we will pick it up from Dr. [facility] today, 09/06/2019 at 2 p.m. He will continue with IV antibiotic therapy for an on unknown time period, which will be managed outpatient with Infectious Disease. He was advised to follow up with General Surgery as an outpatient in 1 week time. I did provide him on a name of a primary care physician in order for him to follow up very closely. On discharge, the patient was doing well, back to normal baseline with no other complaints. I answered all his questions prior to being discharged home and he verbalized understanding and agrees to plan of care. Once again, the patient was cleared for discharge by both consultants, ID and General Surgery. On the day of discharge, vital signs were stable, labs reviewed and stable. The patient was seen and evaluated, examined thoroughly on the day of discharge. No other complaints. The patient verbalized understanding and agrees to plan of care to follow up accordingly as an outpatient with the primary care physician in 1 week. ID, today, 09/06/2019 at 2 p.m. and General Surgery in 1 week time. The patient was advised to come back to the emergency room in the event if he has any issues, fever, worsening pain, or any complaints. He was advised to come back to the emergency room for further evaluation and management. MEDICATIONS: See med reconciliation form including [place] 10 mg one tab p.o. q.6 hours p.r.n. for pain, 25 tablets were provided as well as he will continue with the PICC line and get antibiotics today at Dr. Sargent's office at 2 p.m. He did receive antibiotics prior to being discharged in the hospital. DISPOSITION: To home. CONDITION: Stable. DIET: Heart healthy. In the event of any worsening symptoms, the patient was advised to come back to the ED for further evaluation. Discharge summary took greater than 35 minutes. MD ZACHARY Whitaker/MODL /[id number]
== END 2019-09-06 12:55 | disposition home or self-care (01) | DRG 854 ==
LOC: ER 11:50 → ERHOLD 16:15 → IMCU 19:29 → MED/SURG2 08-25 18:22
PROVIDERS: ADMIT Internal Medicine; ATTEND Internal Medicine
PROC: 02HV33Z Insertion of Infusion Device into Superior Vena Cava, Percutaneous Approach (ICD-10-PCS; 2019-08-23)
PROC: 0DTN0ZZ Resection of Sigmoid Colon, Open Approach (ICD-10-PCS; principal; 2019-08-31 09:23)
DX: A41.9 Sepsis, unspecified organism (principal); K57.80 Diverticulitis of intestine, part unspecified, with perforation and abscess without bleeding; N39.0 Urinary tract infection, site not specified; E86.0 Dehydration; I10 Essential (primary) hypertension; R79.89 Other specified abnormal findings of blood chemistry; G89.18 Other acute postprocedural pain; B96.20 Unspecified Escherichia coli [E. coli] as the cause of diseases classified elsewhere; B96.5 Pseudomonas (aeruginosa) (mallei) (pseudomallei) as the cause of diseases classified elsewhere; B95.2 Enterococcus as the cause of diseases classified elsewhere
CPT/HCPCS: 36415; 36569; 71045; 74177; 80048; 80053; 81001; 82150; 82948; 83605; 83690; 85007; 85025; 85027; 87040; 87071; 87075; 87086; 87186; 87205; 88307; 96361; 96365; 96366; 99284; J0692; J1100; J1170; J1644; J1885; J2001; J2270; J2405; J2543; J2997; J3010; J3480; J7030; J7042; J7050; Q9967

== ENCOUNTER 2021-01-26 12:04 | Emergency (ER) | payer BC ==
[~2021-01-26] VITALS: Ht 175.3 cm; Wt 78.5 kg
[2021-01-26] MEDS ORDERED: KETOROLAC TROMETHAMINE 30 MG/ML VIAL IV STA (12:46)
[2021-01-26 13:11] LABS: BASOPHILS % 0.3 % (0.0-1.0); EOSINOPHILS # (AUTO) 0.1 (0.0-0.4); EOSINOPHILS % 1.1 % (0.0-6.0); HEMATOCRIT 48.9 % (38.2-49.6); HEMOGLOBIN 16.3 g/dL (14.0-18.0); LYMPHOCYTES # (AUTO) 2.6 (1.0-3.2); MEAN CORPUSCULAR HEMOGLOBIN 30.2 pg (28-32); MEAN CORPUSCULAR HGB CONC 33.3 g/dL (31-35); MEAN CORPUSCULAR VOLUME 90.7 fL (81-99); MONOCYTES # (AUTO) 0.9 (0.2-0.8); MONOCYTES % 9.5 % (4.4-11.3); NEUTROPHILS # (AUTO) 5.4 (2.1-6.9); NEUTROPHILS % 59.4 % (38.7-80.0); PLATELET COUNT 278 x10e3/uL (140-360); RED BLOOD COUNT 5.39 x10e6/uL (4.3-5.7); RED CELL DISTRIBUTION WIDTH 12.6 % (11.7-14.4)
[2021-01-26 13:29] LABS: INR 0.81; PROTHROMBIN TIME 11.8 seconds (11.9-14.5)
[2021-01-26 13:30] LABS: PARTIAL THROMBOPLASTIN TIME 32.1 seconds (23.8-35.5)
[2021-01-26 13:31] LABS: ALANINE AMINOTRANSFERASE 85 IU/L (0-55); ALBUMIN 4.5 g/dL (3.5-5.0); ALBUMIN/GLOBULIN RATIO 1.2 (0.8-2.0); ALKALINE PHOSPHATASE 81 IU/L (40-150); ANION GAP 14.2 mmol/L (8-16); BLOOD UREA NITROGEN 14 mg/dL (7-26); BUN/CREATININE RATIO 18 (6-25); CALCIUM 9.4 mg/dL (8.4-10.2); CARBON DIOXIDE 26 mmol/L (22-29); CHLORIDE 104 mmol/L (98-107); CREATINE KINASE 72 IU/L (30-200); CREATININE, SERUM 0.77 mg/dL (0.72-1.25); EST GLOMERULAR FILTRATION RATE > 60 ML/MIN (60-); GLUCOSE 89 mg/dL (74-118); POTASSIUM 4.2 mmol/L (3.5-5.1); SODIUM 140 mmol/L (136-145)
[2021-01-26 17:01] VITALS: BP 124/71
== END 2021-01-26 17:01 | disposition home or self-care (01) ==
LOC: ER 12:42
DX: R07.89 Other chest pain (principal); E78.5 Hyperlipidemia, unspecified; Z87.19 Personal history of other diseases of the digestive system
CPT/HCPCS: 36415; 71045; 80053; 82550; 82553; 84484; 85025; 85610; 85730; 93005; 99283